=== PATIENT | male | born 1950 | race Caucasian/White ===

== ENCOUNTER → 2020-09-16 12:46 | Outpatient (CLI) | payer MEDICARE, SELFPAY ==
--- NOTE | ~2020-09-16 | CT_ITS ---
EXAMINATION: CT abdomen pelvis wo con DATE: 09/16/2020 13:03 INDICATION: Right kidney stone. TECHNIQUE: Computed tomography (CT) of the abdomen and pelvis was performed without intravenous contr ast. Automated exposure control and iterative reconstruction technique were employed. The dose-length product was 300.22 mGy-cm. COMPARISON: CT abdomen and pelvis 07/17/2019 FINDINGS: The visualized portions of the lung bases demonstrate mild scarring in paraspinal right low er lobe. No pleural effusion. There is a large sliding hiatal hernia. The heart size is normal. No pe ricardial effusion. There are cysts in the liver measuring up to 2.8 cm. The spleen, gallbladder, min creas, and adrenal glands are normal. There is mild right hydronephrosis and hydroureter. The prostat e is moderately enlarged. There is a 15 mm cyst in left kidney. There are no dilated loops of bowel. There is severe wall thickening of a loop of small bowel in the pelvis. There are no pathologically e nlarged lymph nodes. There is no free intraperitoneal fluid. There is lumbar dextro scoliosis and sev ere spondylosis. There is a chronic burst fracture of T12. IMPRESSION: 1. Severe wall thickening of a loop of small bowel in the pelvis suspicious for primary malignancy singh ch as adenocarcinoma or lymphoma. 2. Mild right hydronephrosis and hydroureter to the level of the abnormal small bowel loop. No urolit hiasis. 3. Large sliding hiatal hernia. Reviewed, dictated and finalized at location A. IMPRESSION: 1. Severe wall thickening of a loop of small bowel in the pelvis suspicious for primary malignancy such as adenocarcinoma or lymphoma. 2. Mild right hydronephrosis and hydroureter to the level of the abnormal small bowel loop. No urolithiasis. 3. Large sliding hiatal hernia.
== END ==
PROVIDERS: PCP Family Medicine Adolescent Medicine; Visit Provider Urology
DX: N20.0 Calculus of kidney (principal); R93.3 Abnormal findings on diagnostic imaging of other parts of digestive tract; N13.30 Unspecified hydronephrosis; N13.4 Hydroureter; K44.9 Diaphragmatic hernia without obstruction or gangrene
CPT/HCPCS: 74176

== ENCOUNTER 2020-09-29 01:13 | Outpatient (CLI) | payer MEDICARE, SELFPAY ==
[2020-09-29 19:47] LABS: SARS-CoV-2 RNA PCR Negative
== END 2020-09-29 01:14 | disposition home or self-care (01) ==
LOC: ANHCOVIDDT 01:14
PROVIDERS: PCP Family Medicine Adolescent Medicine; Visit Provider Urology
DX: Z01.818 Encounter for other preprocedural examination (principal); Z20.828 Contact with and (suspected) exposure to other viral communicable diseases
CPT/HCPCS: 87635; C9803; U0003

== ENCOUNTER 2020-10-01 01:03 | Day surgery (SDC) | payer MEDICARE, SELFPAY ==
[2020-09-29 10:35] VITALS: BMI 21.9
--- NOTE | ~2020-10-01 | XR_ITS ---
EXAMINATION: XR retrograde pyelo w/stent RT DATE: 10/01/2020 15:03 INDICATION: Retrograde stent placement TECHNIQUE: 84 images of the abdomen and pelvis were obtained during procedure performed by Dr. Medley . Radiologist was not present for the imaging or procedure. The amount of fluoroscopy time used durin g this procedure was 0.4 minutes. COMPARISON: CT dated 09/16/2020 FINDINGS: Images demonstrate cannulation of the right ureter and retrograde injection of contrast into the righ t ureter and renal collecting system. There is stenosis of the distal 6 cm the right ureter with more proximal mild hydroureteronephrosis. Subsequent images demonstrate placement of a right internal ure teral stent with loops formed in the right renal pelvis and in the bladder. IMPRESSION: 1. Right internal ureteral stent placement in expected position spanning a stenosis in the distal rig ht ureter which is likely related to a suspected adjacent small bowel neoplasm. Reviewed, dictated and finalized at location . [employer]SULT[employer] IMPRESSION: 1. 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
--- NOTE | 2020-10-01 06:29 | WPDHPUPDATE1 ---
History and Physical Update Update Date/Time: 10/01/20 06:29 History and Physical has been reviewed, including an updated exam of the patient. There are NO changes in the patient's condition. Risks, benefits, and alternatives have been discussed and questions answered. Patient agrees to proceed with procedure.
[2020-10-01 13:31] VITALS: BP 118/75; PULSE 64; RESP 20; TEMP 36.3; O2SAT 100
[2020-10-01] MEDS: LACTATED RINGERS 1,000 ML 30 ML IV CONT (13:56)
--- NOTE | 2020-10-01 14:10 | WPDANESEPPF ---
Anes - Initial Pre Proc Eval Procedure: Operation Date: 10/01/20 16:00 Proposed Procedures p Cystoscopy, Right Retrograde Pyelogram, Right Stent Placement - John Medley MD Date/Time: 10/01/20 14:10 Surgeon: John Medley MD Pre Op Diagnosis: right hydronephrosis Patient Data Age: 69 Gender: M Height: 6 ft 3 in Weight: 75.9 kg Last Vital Signs Temp 36.3 C L 10/01/20 13:31 Pulse 64 10/01/20 13:31 Resp 20 10/01/20 13:31 BP 118/75 10/01/20 13:31 Pulse Ox 100 10/01/20 13:31 Allergies Allergy/AdvReac Type Severity Reaction Status Date / Time No Known Allergies Allergy Verified 10/01/20 13:36 Home Medications Medication Instructions Recorded Confirmed Type alfalfa 500 mg tablet 500 mg PO DAILY 09/18/20 10/01/20 History cholecalciferol (vitamin D3) 25 25 mcg PO DAILY 09/18/20 10/01/20 History mcg (1,000 unit) capsule finasteride 1 mg tablet 1 mg PO DAILY 09/18/20 10/01/20 History flaxseed oil 1,000 mg capsule 1,000 mg PO EVERY OTHER DAY 09/18/20 10/01/20 History hydrocodone 5 mg-acetaminophen 325 1 tablet PO Q8H 09/18/20 10/01/20 History mg tablet multivitamin,nt-cqtn-mosdybwa 1 tablet PO DAILY 09/18/20 10/01/20 History omega-3 fatty acids 1,000 mg 1,000 mg PO EVERY OTHER DAY 09/18/20 10/01/20 History capsule psyllium husk 0.4 gram capsule 0.4 g PO DAILY 09/22/20 10/01/20 History Patient hx anesthesia problems: none Family hx anesthesia problems: none PMFSH Past Medical History Medical History History of kidney stones Lower abdominal pain Surgical History Surgical History H/O bilateral inguinal hernia repair History of tonsillectomy Family History Family History Father Family history of diabetes mellitus in first degree relative Family history of congestive heart failure Hypertension Mother Family history of malignant neoplasm of kidney Social History Social History Smoking status: Never smoker Alcohol intake: current Substance use: never Spiritual care concerns: No Anes - Eval Final PreProcedure Day of Procedure 10/01/20 14:10 Patient weight: normal Heart: regular rate and rhythm Lungs: clear to auscultation Airway: Mallampati scale class II Neurological: alert and oriented Last oral intake: >/= 8 hours ASA classification: II Emergent: no Anesthetic plan: proceed Anesthesia type and monitoring: general LMA and standard monitoring Informed Consent: The patient's anesthetic plan and its attendant risks and benefits were discussed with the patient/family/POA. Questions were solicited and answers provided to the satisfaction of the patient/family/POA.
[2020-10-01] MEDS: ceFAZolin 2 GM/D5W 50 ML 2 GM/50 ML BAG IVPB (14:45)
--- NOTE | 2020-10-01 14:59 | PM.PROC ---
Procedure Note - Detailed Date of procedure: 10/01/20 Pre-op diagnosis: right hydronephrosis Post-op diagnosis: same Procedure performed: Cystoscopy, right retrograde pylegraphy, right ureteral stent placement Description of procedure: The patient was brought to the operative suite where he was prepped and draped in a routine sterile fashion while in the dorsal lithotomy position. A 19 F rigid cystoscope was placed in her bladder and the bladder was circumferentially inspected. There were no urethral strictures. The prostatic urethral estimated length was []cm. There was mild obstruction of the prostatic urethra with no median lobe. The bladder mucosa was without hyperemia. There was no intravesical foreign body or neoplasm. There was a single orthotopic ureteral orifice bilaterally. using an angiographic catheter a right retrograde pyelogram was obtained. There is concentric narrowing just below the right iliac vessels, consistent with extrinsic compression from the small bowel mass as previously identified. I advanced .035 glidewire into the right renal pelvis under fluoroscopy. A 6F variable length ureteral stent was positioned with the proximal coil in the renal pelvis and the distal coil in the bladder. Scopes and wires were removed after emptying the patient's bladder. Anesthesia: GLMA Surgeon: John Medley MD Estimated blood loss (mL): 0 Drains: Yes (6F right ureteral stent) Packing: No Pathology: none sent Complications: No immediate complications Condition: stable Disposition: PACU
[2020-10-01 15:00] VITALS: BP 105/69; PULSE 63; RESP 16; O2SAT 100
[2020-10-01 15:20] VITALS: BP 126/86; PULSE 67; RESP 16
[2020-10-01 15:35] VITALS: BP 113/78; PULSE 56
[2020-10-01 15:50] VITALS: BP 124/64; PULSE 61; RESP 16
== END 2020-10-01 16:03 | disposition home or self-care (01) ==
PROVIDERS: PCP Family Medicine Adolescent Medicine; Visit Provider Urology
PROC: (CPT 52352; principal; 2020-10-01 16:00)
DX: N13.30 Unspecified hydronephrosis (principal)
CPT/HCPCS: 52332; 74420; A9270; C1769; C1887; C2617; J0690; J2704; J7120; Q9966

== ENCOUNTER 2020-10-12 09:55 | Outpatient (CLI) | payer MEDICARE, SELFPAY ==
--- NOTE | 2020-10-12 10:38 | ECG_ITS ---
Measurements Intervals [place] Rate: 64 P: 77 ND: 160 QRS: 48 QRSD: 97 T: 54 QT: 370 QTc: 383 Interpretive Statements SINUS RHYTHM RSR' IN V1 OR V2, CONSIDER RIGHT VENTRICULAR HYPERTROPHY OR RIGHT VCD VOLTAGE CRITERIA FOR LVH PEAKED T WAVES- CONSIDER HYPERKALEMIA OR ISCHEMIA BASELINE ARTIFACT- I, II, III, AVR, AVL, AVF ABNORMAL ECG Electronically Signed On 10-12-2020 11:01:47 WHEEL [employer]UTTER by Stalin Manzanares D.O.
== END 2020-10-12 09:56 | disposition home or self-care (01) ==
LOC: ANHSURGERY 09:57
PROVIDERS: PCP Family Medicine Adolescent Medicine; Visit Provider Surgery
DX: Z01.818 Encounter for other preprocedural examination (principal); K63.89 Other specified diseases of intestine; R94.31 Abnormal electrocardiogram [ECG] [EKG]
CPT/HCPCS: 36415; 86850; 86900; 86901; 93005

== ENCOUNTER → 2020-10-14 08:14 | Outpatient (CLI) | payer MEDICARE, SELFPAY ==
--- NOTE | ~2020-10-14 | XR_ITS ---
EXAMINATION: XR small bowel follow through EXAM DATE: 10/14/2020 10:01 INDICATION: K63.89 - Other specified diseases of intestine TECHNIQUE: Rn Endocrinology radiograph was acquired. Small bowel series was performed with water-soluble Omnipa que solution. Spot images of the terminal ileum were acquired. The DAP for this procedure was 1.9 Gycm2. Correlation is made to CT abdomen pelvis 09/16/2020. FINDINGS: In the pelvis there is a loop of ileum which likely correlates to the loop identified on CT , has more space around it than the other loops likely from bowel wall thickening identified on CT. T his segment still demonstrated some peristalsis. There are no intraluminal filling defects identified . There is no small bowel dilation. Terminal ileum is normal in appearance. Contrast reached the c olon 15 to 30 minutes, rapid transit time. There is a right double-J ureteral stent. IMPRESSION: Single loop of low pelvic ileum slightly displaced from others, could be from wall thick ening identified on CT. Reviewed, dictated and finalized at location B. IAC RN IMPRESSION: Single loop of low pelvic ileum slightly displaced from others, co uld be from wall thickening identified on CT.
== END ==
PROVIDERS: PCP Family Medicine Adolescent Medicine; Visit Provider Nurse Practitioner Family
DX: K63.89 Other specified diseases of intestine (principal)
CPT/HCPCS: 74250

== ENCOUNTER 2020-10-16 01:22 | Outpatient (CLI) | payer MEDICARE, SELFPAY ==
[2020-10-16 21:25] LABS: SARS-CoV-2 RNA PCR Negative
== END 2020-10-16 01:23 | disposition home or self-care (01) ==
LOC: ANHCOVIDDT 01:22
PROVIDERS: PCP Family Medicine Adolescent Medicine; Visit Provider Surgery
DX: Z01.812 Encounter for preprocedural laboratory examination (principal); Z20.828 Contact with and (suspected) exposure to other viral communicable diseases
CPT/HCPCS: 87635; C9803; U0003

== ENCOUNTER 2020-10-19 11:28 | Inpatient (IN) | payer MEDICARE, SELFPAY ==
[2020-10-12 10:18] VITALS: BP 116/76; PULSE 78; RESP 20; TEMP 36.7; O2SAT 100; BMI 20.3
[2020-10-19] VITALS (15 sets, daily range): BP systolic 84–127; BP diastolic 52–73; PULSE 66–86; RESP 12–20; TEMP 36.2–36.9; O2SAT 99–100; BMI 19.9
--- NOTE | 2020-10-19 08:11 | WPDANESEPPF ---
Anes - Initial Pre Proc Eval Procedure: Operation Date: 10/19/20 09:30 Proposed Procedures p Lap Right Transverse Colon Resection - Lisa Hinton MD Date/Time: 10/19/20 08:11 Surgeon: Lisa Hinton MD Pre Op Diagnosis: Small Bowel Mass Highly Suspicion of Malignancy Patient Data Age: 70 Gender: M Height: 6 ft 3 in Weight: 72.4 kg Last Vital Signs Temp 36.2 C L 10/19/20 07:48 Pulse 86 10/19/20 07:48 Resp 20 10/19/20 07:48 BP 113/68 10/19/20 07:48 Pulse Ox 100 10/19/20 07:48 Allergies Allergy/AdvReac Type Severity Reaction Status Date / Time No Known Allergies Allergy Verified 10/19/20 08:03 Home Medications Medication Instructions Recorded Confirmed Type alfalfa 500 mg tablet 500 mg PO DAILY 09/18/20 10/19/20 History cholecalciferol (vitamin D3) 25 25 mcg PO DAILY 09/18/20 10/19/20 History mcg (1,000 unit) capsule finasteride 1 mg tablet 5 mg PO DAILY 09/18/20 10/19/20 History flaxseed oil 1,000 mg capsule 1,000 mg PO EVERY OTHER DAY 09/18/20 10/19/20 History multivitamin,bp-xusd-zdwdurox 1 tablet PO EVERY OTHER DAY 09/18/20 10/19/20 History omega-3 fatty acids 1,000 mg 1,000 mg PO EVERY OTHER DAY 09/18/20 10/19/20 History capsule psyllium husk 0.4 gram capsule 0.4 g PO DAILY 09/22/20 10/19/20 History erythromycin 500 mg tablet 500 mg PO .COMPLEX #6 tablet 10/09/20 10/19/20 Rx neomycin 500 mg tablet 500 mg PO .COMPLEX #6 tablet 10/09/20 10/19/20 Rx geriatric multivitamin-min 1 tablet EVERY OTHER DAY 10/12/20 10/19/20 History [One-A-Day 50 Plus] Patient hx anesthesia problems: none Family hx anesthesia problems: none PMFSH Past Medical History Medical History History of kidney stones Lower abdominal pain Surgical History Surgical History H/O bilateral inguinal hernia repair History of tonsillectomy Family History Family History Father Family history of diabetes mellitus in first degree relative Family history of congestive heart failure Hypertension Mother Family history of malignant neoplasm of kidney Social History Social History Smoking status: Never smoker Alcohol intake: current Alcohol use details: STATES MAYBE ONE EVERY OTHER WEEK Substance use: never Living arrangements: with family Spiritual care concerns: No Anes - Eval Final PreProcedure Day of Procedure 10/19/20 08:11 Patient weight: normal Heart: regular rate and rhythm Lungs: clear to auscultation Airway: Mallampati scale class II Neurological: alert and oriented Last oral intake: >/= 8 hours ASA classification: III Emergent: no Anesthetic plan: proceed Anesthesia type and monitoring: general ETT and standard monitoring Informed Consent: The patient's anesthetic plan and its attendant risks and benefits were discussed with the patient/family/POA. Questions were solicited and answers provided to the satisfaction of the patient/family/POA.
[2020-10-19] MEDS: LACTATED RINGERS 1,000 ML 30 ML IV CONT ×2 (08:26→11:28)
[2020-10-19] MEDS: ACETAMINOPHEN 500 MG TABLET 1000 MG PO (08:27)
[2020-10-19] MEDS: KETOROLAC 15 MG/ML VIAL (*BKC) IV PUSH (08:27)
[2020-10-19] MEDS: ALVIMOPAN 12 MG CAPSULE PO (08:28)
--- NOTE | 2020-10-19 08:33 | SUR.PREOP ---
PT STATES HE DRANK HIS ENSURE YESTERDAY BUT WAS UNABLE TO DRINK ENSURE TODAY.
--- NOTE | 2020-10-19 08:59 | SUR.PREOP ---
DR WILCOX NOTIFIED THAT PT DRANK HIS ENSURE YESTERDAY BUT NOT TODAY
--- NOTE | 2020-10-19 09:00 | WPDHPUPDATE1 ---
History and Physical Update Update Date/Time: 10/19/20 09:00 History and Physical has been reviewed, including an updated exam of the patient. There are NO changes in the patient's condition. Risks, benefits, and alternatives have been discussed and questions answered. Patient agrees to proceed with procedure. Pt c SB mass highly suspicious of malignancy, given this will proceed c surgical resection.
[2020-10-19] MEDS: ceFAZolin 2 GM/D5W 50 ML 2 GM/50 ML BAG IVPB (09:41)
[2020-10-19] MEDS: metroNIDAZOLE 500 MG/ISO 100ML 500 MG/100 ML BAG 100 MG IVPB (09:51)
--- NOTE | 2020-10-19 11:33 | PM.PROC ---
Procedure Note - Detailed Date of procedure: 10/19/20 Pre-op diagnosis: Small Bowel Mass Highly Suspicion of Malignancy Post-op diagnosis: same Procedure performed: exploratory laparotomy, lysis of adhesions including mobilization of the right colon, small bowel resection Description of procedure: The patient was taken to the operating room and placed in the supine position. After adequate induction of general anesthesia, the patient was prepped and draped in the normal sterile fashion. A time-out was then done to verify the patient's identity, as well as the procedure being performed. I began by making a hand port incision around the umbilicus. This was taken down into the peritoneal cavity. Once into the peritoneal cavity, I was able to palpate the mass located in the right lower pelvis. The mass was noted to be somewhat adhered to the anterior abdominal wall as well as the right pelvis. Using some blunt dissection was able to free up these adhesions. I was then able to bring the mass to the area of the incision. The mass was noted to be located in the mid ileum. I was able to free the bowel both proximal and distal to the mass. I then was able to mobilize the right colon by taking down the white line of Toldt. Given the easy mobilization and visualization I decided not to proceed with laparoscopy. I then transected the small bowel proximal using a BEATRIZ 55 stapler. The distal margin was in the terminal ileum and again transected with a 55 BEATRIZ stapler. There was noted to be a mass in the mesentery and this was resected en block with the specimen. I used the LigaSure to take down the mesentery. The specimen was then sent to pathology fresh for review. I then performed a [id number] functional end-to-end anastomosis between the 2 ends of small intestine. I then closed the mesenteric defect. I then copiously irrigated the abdomen and no other pathology was grossly identified. The fascia was then closed with #1 Looped PDS suture. The skin was closed with 4.0 Monocryl subcuticular suture. The patient tolerated the procedure well and was extubated in the operating room postoperative. He will be sent to the recovery room in stable condition. Anesthesia: GETA Surgeon: Lisa Hinton MD Estimated blood loss (mL): 100 Drains: No Packing: No Pathology: yes Complications: No immediate complications Condition: stable Disposition: PACU Findings: large mass in mid ileum and messentery
[2020-10-19] MEDS: fentaNYL CITRATE INJ (*CRX) 100 MCG/2 ML VIAL 25 MCG IV PUSH ×6 (11:52→12:20)
[2020-10-19] MEDS: LACTATED RINGERS 1,000 ML 100 ML IV CONT ×2 (13:25→23:55)
[2020-10-19] MEDS: MORPHINE SULFATE (*CRX) 2 MG/ML INJ IV PUSH ×2 (13:25→17:45)
[2020-10-19] MEDS: CHOLECALCIFEROL 1,000 UNITS TABLET 1000 UNITS PO (18:26)
[2020-10-19] MEDS: FINASTERIDE 5 MG TABLET PO (18:26)
[2020-10-19] MEDS: OMEGA 3 POLYUNSAT FATTY ACIDS 1 GM CAP PO (18:27)
[2020-10-19] MEDS: GABAPENTIN 300 MG CAPSULE 600 MG PO (18:27)
[2020-10-19] MEDS: THERAPEUTIC MULTIVITAMINS/MINERALS TAB (*BKC) 1 TABLET PO (18:27)
[2020-10-20 00:36] VITALS: BP 90/56
[2020-10-20 04:00] VITALS: BP 98/65; PULSE 68; RESP 20; TEMP 37.1; O2SAT 100
[2020-10-20 05:18] LABS: Basophils Percent Auto 0.1 % (0.2-1.2); Hematocrit 24.7 % (42.0-52.0); Hemoglobin 8.4 g/dL (14.0-18.0); Immature Granulocyte Absolute 0.12 K/mm3 (0.00-0.031); Immature Granulocyte Percent A 0.7 % (0-0.5); Lymphocytes Absolute Auto 0.48 K/mm3 (0.9-3.2); Lymphocytes Percent Auto 2.8 % (18.3-44.2); Mean Corpuscular Hemoglobin 26.7 pg (26-34); Mean Corpuscular Volume 78.4 fl (80-100); Mean Platelet Volume 9.7 fl (7.4-10.4); Monocytes Absolute Auto 0.8 K/mm3 (0.1-0.6); Neutrophils Absolute Auto 15.5 K/mm3 (1.3-6.7); Neutrophils Percent Auto 91.4 % (45.5-73.1); Platelet Count Result 276 k/mm3 (150-375); Red Blood Count 3.15 M/mm3 (4.6-6.20); Red Cell Distribution Width 12.8 % (11.5-14.5); White Blood Count 16.9 K/mm3 (4.5-10.0)
[2020-10-20 05:26] LABS: Anion Gap 4 mmol/L (8-16); Blood Urea Nitrogen 21 mg/dL (9-20); Calcium 8.7 mg/dL (8.4-10.2); Carbon Dioxide 26 mmol/L (22-30); Chloride 103 mmol/L (98-107); Estimated CRCL calculation 58 ml/min; Estimated Glomerular Filt Rate > 60; Glucose 140 mg/dL (75-110); Potassium 3.9 mmol/L (3.4-5.0); Sodium 133 mmol/L (137-145)
[2020-10-20 06:12] LABS: Ovalocytes 1+ (NORMAL); Platelet Estimate Adequate (Adequate); Schistocytes 1+ (NORMAL)
--- NOTE | 2020-10-20 07:58 | WPDANESPN ---
Anes - Prog Note Post-Op Date/Time: 10/20/20 07:58 Cardiovascular status: normal Respiratory status: normal Airway patency: baseline Mental status: baseline Post-Op hydration status: normal Vital Signs: Last Vital Signs Temp 37.1 C 10/20/20 04:00 Pulse 68 10/20/20 04:00 Resp 20 10/20/20 04:00 BP 98/65 L 10/20/20 04:00 Pulse Ox 100 10/20/20 04:00 Pain Score (VAS): 0 I/O: Intake & Output 10/19/20 10/19/20 10/20/20 15:59 23:59 07:59 Intake Total 100 2665 935 Output Total 100 225 900 Balance 0 2440 35 Laboratory Tests 10/20/20 05:05 10/20/20 05:05 10/20/20 10/20/20 05:05 05:05 WBC 16.9 H RBC 3.15 L Hgb 8.4 L Hct 24.7 L MCV 78.4 L MCH 26.7 MCHC 34.0 RDW 12.8 Plt Count 276 MPV 9.7 Immature Gran % (Auto) 0.7 H Neut % (Auto) 91.4 H Lymph % (Auto) 2.8 L Howard % (Auto) 5.0 Eos % (Auto) 0.0 Baso % (Auto) 0.1 L Lymph # (Auto) 0.48 L Howard # (Auto) 0.8 H Eos # (Auto) 0.0 Baso # (Auto) 0.0 Abs Immat Gran (auto) 0.12 H Absolute Neuts (auto) 15.5 H Absolute Nucleated RBC 0.0 Nucleated RBC % 0.0 Platelet Estimate Adequate Ovalocytes 1+ Schistocytes 1+ Sodium 133 L Potassium 3.9 Chloride 103 Carbon Dioxide 26 Anion Gap 4 L BUN 21 H Creatinine 1.10 Estim Creat Clear Calc 58 Estimated GFR > 60 Glucose 140 H Calcium 8.7 Post-procedural complaints: none Patient Feedback: Patient satisfied with anesthetic care.
[2020-10-20] MEDS: FINASTERIDE 5 MG TABLET PO (08:25)
[2020-10-20] MEDS: PANTOPRAZOLE 40 MG TABLET PO (08:25)
[2020-10-20] MEDS: CHOLECALCIFEROL 1,000 UNITS TABLET 1000 UNITS PO (08:26)
[2020-10-20] MEDS: LACTATED RINGERS 1,000 ML 100 ML IV CONT (10:33)
--- NOTE | 2020-10-20 11:26 | PM.PNGS ---
Progress Note: A&P Assessment and Plan (1) Small bowel mass: Code(s): K63.89 - Other specified diseases of intestine Status: Acute Assessment and Plan: POD#1 and doing well. Tolerating a clear liquid diet. Will advance diet as tolerated. Encouraged OOB/IS. Pathology pending. (2) BPH (benign prostatic hyperplasia): Code(s): N40.0 - Benign prostatic hyperplasia without lower urinary tract symptoms Status: Acute Assessment and Plan: Discontinue Barron catheter. Monitor for urinary retention. Finasteride restarted post-op. Additional Plan Discussed plan of care with Dr. Hinton. Subjective Subjective Date/Time Seen: 10/20/20 11:26 Post Op day: 1 Patient reports: no new complaints, tolerating liquids well, flatus and no bowel movement Interval history: Patient seen and examined. Reports tolerating activity and was able to walk the halls this morning. He reports some light-headedness while ambulating that quickly subsided x 1, no recurrence when getting up to walk again later in the morning. Tolerating a clear liquid diet. Denies nausea, vomiting, or bloating. Reports flatus but no BM yet. Reports some incisional abdominal pain that improves with the IV Ofirmev. No other complaints at this time. Review of Systems Review of Systems: All systems reviewed & are unremarkable except as noted in HPI and below Constitutional: Constitutional: Reports no additional constitutional complaints, Denies chills and Denies fever(s) Cardiovascular: Cardiovascular: Reports no additional cardiovascular complaints, Denies chest pain, Denies pedal edema and Denies leg edema Respiratory: Respiratory: Reports no additional respiratory complaints, Denies cough, Denies dyspnea and Denies wheezing Gastrointestinal: Gastrointestinal: Reports as per HPI and Reports no additional gastrointestinal complaints Exam Const: General: comfortable, no acute distress, alert and awake Orientation/consciousness: patient oriented x3 Resp: Effort & Inspection: normal respiratory effort and able to speak in complete sentences Auscultation: clear to auscultation bilaterally Cardio: Rate: regular rate Rhythm: regular rhythm GI: Inspection: non-distended and incision (Abdominal incision clean and dry, glue intact) GI Palp: Yes Soft to palpation, Yes Tenderness to palpation present (GI) (incisional), No Guarding due to palpation present (GI) and No Rebound tenderness present Auscultation: normal bowel sounds Urinary Catheter: Urinary Catheter: patent and draining and urine clear Skin: General skin exam: pallor Neuro: General: patient oriented x3 and moves all extremities Cranial nerves: Yes CN's II-XII intact bilaterally Speech: normal speech Extrem: General: no calf tenderness and no edema Psych: Mental Status: mental status grossly normal Attitude: cooperative Thought process: Normal thought process present Thought content: Yes Normal thought content present Objective Data Vital Signs Vital Signs: Vital Signs - 24 hr 10/19/20 11:28 10/19/20 11:43 10/19/20 11:58 Temperature 97.1 F L Pulse Rate 79 73 82 Respiratory Rate 14 15 17 Blood Pressure 119/64 119/69 114/73 Pulse Oximetry 100 100 100 10/19/20 12:13 10/19/20 12:15 10/19/20 12:25 Temperature 98.5 F Pulse Rate 73 82 76 Respiratory Rate 15 16 12 Blood Pressure 109/68 112/63 108/67 Pulse Oximetry 100 100 100 10/19/20 12:30 10/19/20 12:45 10/19/20 13:00 Temperature 98.3 F 97.9 F 98 F Pulse Rate 83 85 85 Respiratory Rate 16 16 16 Blood Pressure 112/66 111/67 113/66 Pulse Oximetry 100 100 100 10/19/20 13:30 10/19/20 14:00 10/19/20 18:00 Temperature 98 F 97.9 F 98.5 F Pulse Rate 85 85 75 Respiratory Rate 16 16 16 Blood Pressure 118/68 127/68 118/66 Pulse Oximetry 100 100 100 10/19/20 20:00 10/19/20 23:56 10/20/20 00:36 Temperature 98.5 F 98.4 F Pulse Rate 76 66 Respiratory Rate 18 18 Blood Pressure 109/56 L 84/52 L 90/56 L Pulse Ox
[2020-10-20 12:00] VITALS: BP 122/73; PULSE 82; RESP 18; TEMP 36.9; O2SAT 100
[2020-10-20 14:18] VITALS: TEMP 36.9
[2020-10-20] MEDS: ACETAMINOPHEN 500 MG TABLET PO (14:18)
[2020-10-20] MEDS: ALVIMOPAN 12 MG CAPSULE PO ×2 (14:20→23:57)
[2020-10-20] MEDS: HYDROcodone/acetaminophen (*CRX) 5-325 MG TABLET 1 TAB PO ×2 (15:02→20:40)
[2020-10-20 16:00] VITALS: BP 120/79; PULSE 82; RESP 18; TEMP 36.4; O2SAT 100
[2020-10-20 17:41] VITALS: BMI 20.6
[2020-10-20 20:00] VITALS: BP 127/83; PULSE 74; PULSE 80; RESP 15; RESP 16; TEMP 37.1; O2SAT 100; O2SAT 99
[2020-10-21] VITALS (7 sets, daily range): BP systolic 116–149; BP diastolic 74–89; PULSE 67–91; RESP 15–19; TEMP 36.6–36.9; O2SAT 98–100
[2020-10-21] MEDS: HYDROcodone/acetaminophen (*CRX) 5-325 MG TABLET 1 TAB PO (04:48)
[2020-10-21 05:15] LABS: Hematocrit 28.4 % (42.0-52.0); Hemoglobin 9.4 g/dL (14.0-18.0); Mean Corpuscular HGB Conc 33.1 g/dl (32-36); Mean Corpuscular Hemoglobin 26.9 pg (26-34); Mean Corpuscular Volume 81.4 fl (80-100); Mean Platelet Volume 9.8 fl (7.4-10.4); Platelet Count Result 312 k/mm3 (150-375); Red Blood Count 3.49 M/mm3 (4.6-6.20); Red Cell Distribution Width 13.2 % (11.5-14.5); White Blood Count 16.8 K/mm3 (4.5-10.0)
[2020-10-21 05:33] LABS: Anion Gap 2 mmol/L (8-16); Blood Urea Nitrogen 19 mg/dL (9-20); Calcium 9.1 mg/dL (8.4-10.2); Carbon Dioxide 29 mmol/L (22-30); Chloride 106 mmol/L (98-107); Estimated CRCL calculation 70 ml/min; Estimated Glomerular Filt Rate > 60; Glucose 102 mg/dL (75-110); Potassium 3.9 mmol/L (3.4-5.0); Sodium 137 mmol/L (137-145)
[2020-10-21] MEDS: PANTOPRAZOLE 40 MG TABLET PO (08:23)
[2020-10-21] MEDS: CHOLECALCIFEROL 1,000 UNITS TABLET 1000 UNITS PO (08:24)
[2020-10-21] MEDS: OMEGA 3 POLYUNSAT FATTY ACIDS 1 GM CAP PO (08:24)
[2020-10-21] MEDS: FINASTERIDE 5 MG TABLET PO (08:24)
[2020-10-21] MEDS: THERAPEUTIC MULTIVITAMINS/MINERALS TAB (*BKC) 1 TABLET PO (08:24)
[2020-10-21] MEDS: ALVIMOPAN 12 MG CAPSULE PO ×2 (08:24→21:12)
--- NOTE | 2020-10-21 11:58 | PM.PNGS ---
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 - Non-Hodgkin lymphoma, unspecified, extranodal and solid organ sites Status: Acute Assessment and Plan: await final path, will get oncology consult, await bowel fxn, cont to ADAT Subjective Subjective Date/Time Seen: 10/21/20 11:58 feels pretty good, no acute issues, +flatus, davina full liquids Review of Systems Review of Systems: All systems reviewed & are unremarkable except as noted in HPI and below Exam Resp: Effort & Inspection: normal respiratory effort Auscultation: clear to auscultation bilaterally Cardio: Rate: regular rate Rhythm: regular rhythm GI: Inspection: normal to inspection, no edema, non-distended and incision GI Palp: Yes abdominal tenderness, Yes Soft to palpation, No Firmness to palpation present (GI), Yes Tenderness to palpation present (GI) and No Guarding due to palpation present (GI) Other: soft, sl dist, belem TTP, incision C/D/I Objective Data Vital Signs Vital Signs: Vital Signs - 24 hr 10/20/20 12:00 10/20/20 14:18 10/20/20 16:00 Temperature 36.9 C 36.9 C 36.4 C L Pulse Rate 82 82 Respiratory Rate 18 18 Blood Pressure 122/73 120/79 Pulse Oximetry 100 100 10/20/20 20:00 10/21/20 00:00 10/21/20 04:00 Temperature 37.1 C 36.9 C 36.7 C Pulse Rate 74 81 78 Respiratory Rate 16 18 18 Blood Pressure 127/83 122/87 129/83 Pulse Oximetry 100 98 100 10/21/20 08:00 10/21/20 08:20 Temperature 36.9 C Pulse Rate 91 91 Respiratory Rate 18 18 Blood Pressure 120/89 Pulse Oximetry 100 100 Intake/Output Intake/Output: Intake & Output 10/18/20 10/19/20 10/20/20 10/21/20 23:59 23:59 23:59 23:59 Intake Total 2768 4079 Output Total 325 7540 Balance 0867 0726 Meds/Results Medications: Active Medications Generic Name Dose Route Start Last Admin Trade Name Freq PRN Reason Stop Dose Admin Acetaminophen 500 mg 10/19/20 11:28 10/20/20 14:18 Acetaminophen 500 Mg Tablet PO 500 mg Q6H PRN Administration Mild Pain (1-3) or Fever Hydrocodone Bitart/Acetaminophen 1 tab 10/20/20 14:00 10/21/20 04:48 Hydrocodone/Acetaminophen (*Crx) 5-325 Mg Tablet PO 1 tab Q4H PRN Administration Pain Rated 4-6 Alvimopan 12 mg 10/20/20 11:28 10/21/20 08:24 Alvimopan 12 Mg Capsule PO 10/27/20 11:29 12 mg Q12HR SASKIA Administration Finasteride 5 mg 10/19/20 09:00 10/21/20 08:24 Finasteride 5 Mg Tablet PO 5 mg QAM SASKIA Administration Fish Oil 1 gm 10/19/20 13:00 10/21/20 08:24 [place] 3 Polyunsat Fatty Acids 1 Gm Cap PO 1 gm Q48HR SASKIA Administration Morphine Sulfate 2 mg 10/19/20 11:28 10/19/20 17:45 Morphine Sulfate (*Crx) 2 Mg/Ml Inj IV PUSH 2 mg Q2H PRN Administration Pain Rated 4-6 Multivitamins/Calcium 1 tablet 10/19/20 13:00 10/21/20 08:24 Therapeutic Multivitamins/Minerals Tab (*Bkc) PO 1 tablet Q48HR SASKIA Administration Naloxone HCl 0.1 mg 10/19/20 11:28 Naloxone Hcl 0.4 Mg/Ml Vial IV PUSH Q2M PRN Opiate Reversal Neomycin Sulfate 500 mg 10/19/20 11:35 Neomycin Sulfate 500 Mg Tab PO .COMPLEX SASKIA Non-Formulary Medication 500 mg 10/19/20 11:45 Erythromycin PO 11/18/20 11:46 .COMPLEX SASKIA Non-Formulary Medication 1,000 mg 10/19/20 09:00 Flaxseed Oil PO 11/18/20 09:01 Q48H SASKIA Non-Formulary Medication 1 tablet 10/19/20 11:45 Geriatric Multivitamin-Min PO 11/18/20 11:46 EVERY OTHER DAY SASKIA Non-Formulary Medication 0.4 gm 10/20/20 09:00 Psyllium Husk [Fiber (Psyllium Husk)] PO 11/19/20 09:01 DAILY SASKIA Ondansetron HCl 4 mg 10/19/20 11:28 Ondansetron Inj 4 Mg/2 Ml Vial IV PUSH Q4H PRN Nausea And Vomiting Oxycodone/Acetaminophen 1 tablet 10/20/20 14:00 Oxycodone/Acetaminophen (*Crx) 5-325 Mg Tablet PO Q4H PRN Pain Rated 7-10 Pantoprazole Sodium 40 mg 10/20/20 09:00 10/21/20 08:23 Pantopraz
[2020-10-21] MEDS: ACETAMINOPHEN 500 MG TABLET PO ×2 (12:27→19:40)
--- NOTE | 2020-10-21 17:30 | PC.NURSE ---
Patient report received from Kay Rolon RN. All questions answered. Patient care assumed. Patient resting comfortably in bed with no complaints. VSS. Will continue to monitor and address needs as they arise.
[2020-10-22] VITALS: BP 133/80; PULSE 74; RESP 20; TEMP 36.5; O2SAT 100
[2020-10-22 04:00] VITALS: BP 140/84; PULSE 74; RESP 18; TEMP 36.4; O2SAT 100
[2020-10-22] MEDS: ACETAMINOPHEN 500 MG TABLET PO (07:09)
[2020-10-22 08:15] VITALS: BP 120/74; PULSE 87; RESP 14; TEMP 36.6; O2SAT 100
[2020-10-22] MEDS: ALVIMOPAN 12 MG CAPSULE PO (10:33)
[2020-10-22] MEDS: FINASTERIDE 5 MG TABLET PO (10:33)
[2020-10-22] MEDS: PANTOPRAZOLE 40 MG TABLET PO (10:33)
[2020-10-22] MEDS: CHOLECALCIFEROL 1,000 UNITS TABLET 1000 UNITS PO (10:34)
--- NOTE | 2020-10-22 11:51 | PM.DS ---
DS: Admitting Diagnosis Admitting Diagnosis Admitting Diagnosis: small bowel mass DS: Discharge Diagnosis Discharge Diagnosis (1) Small bowel mass: Code(s): K63.89 - Other specified diseases of intestine Status: Acute Assessment and Plan: 10/19/20 exploratory laparotomy, lysis of adhesions including mobilization of the right colon, small bowel resection by Dr. Hinton (2) BPH (benign prostatic hyperplasia): Code(s): N40.0 - Benign prostatic hyperplasia without lower urinary tract symptoms Status: Acute Assessment and Plan: Continue home medication, finasteride, on discharge. No issues with voiding post-op. 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 DS: Summary Hospital Course Reason for hospitalization: Charles is a 69 y/o male who presented to our office in evaluation by Dr. Hinton with a small intestinal mass at the request of Dr. Hanna. Patient had a CT abd/pelvis without contrast at [facility] on 09/16/20 to evaluate for back pain. Imaging showed a severe wall thickening of a loop of small bowel in the pelvis suspicious for primary malignancy such as adenocarcinoma of lymphoma. He is also followed by a Urologist, Dr. Medley. Decision was made to proceed with surgery and the patient presented to the hospital on 10/19/20 for planned small bowel resection. Hospital Course: The patient was admitted following an exploratory laparotomy, lysis of adhesions including mobilization of the right colon, small bowel resection by Dr. Hinton on 10/19/20. No immediate complications. He was sent to the chest pain center as an overflow surgical patient. Slowly he was advanced to a soft, regular diet and has tolerated this well. Pain has been well-controlled with only a small amount of narcotic use. He has been on Alvimopan since surgery and bowel function returned on post-op day 2. He is tolerating activity well. Voiding without any issues after the Barron catheter was removed on POD1. Vital signs have been stable and labs have been unremarkable. CEA was drawn and 2.7. Pathology was still pending this morning when I saw the patient. Dr. Hinton will call the patient to discuss pathology results. Oncology was consulted yesterday. The patient is stable for discharge today and is okay with following up with Oncology quickly as an outpatient if they are unable to see him prior to discharge. The patient was seen today and is tolerating a soft diet. He has had multiple bowel movements last night and this morning. Voiding well. He denies chest pain, shortness of breath, leg swelling, calf pain, or cough. No other complaints at this time. The patient is stable for discharge and I spoke with Dr. Hinton today who is okay with the patient discharging. He will follow-up in our office as scheduled. All discharge instructions were discussed with the patient in detail and all questions were answered. This afternoon, as I am doing the discharge summary, I noted that the pathology results came back and shows: (Please see pathology report for full report and addendums from send outs) - DIFFUSE LARGE B-CELL LYMPHOMA, GERMINAL CENTER TYPE, 12.3 x 5.5 x 2.0 CM - FLOW CYTOMETRY WITH [id number] MONOTYPIC (CLONAL) B-CELL POPULATION (44% OF SAMPLE) WITH MIXED/INCREASED CELL SIZE Comment: Oven Loader fresh neoplastic tissue was sent to [facility] [place], [place] for flow cytometry and cytogenetics. The flow cytometric findings are as given above. The cytogenetic studies are still pending. After gross examination of the specimen and tissue processing at [facility], the microscopic slides and tissue blocks were sent to [facility] for a hematopathology consultation to include immunohistochemistry. At [facility], the case was reviewed by Dr. Figueroa
== END 2020-10-22 13:32 | disposition home or self-care (01) | DRG 822 ==
LOC: ANHSURGERY 12:30 → ANHCPC 12:39
PROVIDERS: Admitting Provider Surgery; PCP Family Medicine Adolescent Medicine; Visit Provider Nurse Practitioner Family
PROC: 0DTF4ZZ Resection of Right Large Intestine, Percutaneous Endoscopic Approach (ICD-10-PCS; CPT 44204; principal; 2020-10-19 09:30)
DX: C83.39 Diffuse large B-cell lymphoma, extranodal and solid organ sites (principal); N40.0 Benign prostatic hyperplasia without lower urinary tract symptoms; Z87.442 Personal history of urinary calculi
CPT/HCPCS: 36415; 80048; 85025; 85027; 87635; 88307; 88309; 88333; 88342; 88360; 88364; 88365; A9270; C9803; J0131; J0330; J0690; J1100; J1885; J2270; J2370; J2405; J2704; J2710; J3010; J7120; U0003

== ENCOUNTER 2020-10-30 02:12 | Outpatient (CLI) | payer MEDICARE, SELFPAY ==
[2020-10-30 18:46] LABS: SARS-CoV-2 RNA PCR Negative
== END 2020-10-30 02:13 | disposition home or self-care (01) ==
LOC: ANHCOVIDDT 02:12
PROVIDERS: PCP Family Medicine Adolescent Medicine; Visit Provider Internal Medicine Hematology & Oncology
DX: Z01.812 Encounter for preprocedural laboratory examination (principal); Z11.59 Encounter for screening for other viral diseases
CPT/HCPCS: 87635; C9803; U0003

== ENCOUNTER 2020-11-02 01:12 | Day surgery (SDC) | payer MEDICARE, SELFPAY ==
[2020-10-30 14:52] VITALS: BMI 20.6
--- NOTE | ~2020-11-02 | BM_ITS ---
EXAMINATION: CCL bone marrow asp w bx diag DATE: 12/15/2020 12:15 INDICATION: Lymphoma. TECHNIQUE: A time-out was performed to verify the patient's name, date of , and procedure to b e performed. The procedure including the risks, benefits, and alternatives was discussed with the pat ient. Risks discussed included bleeding and infection. The patient understood the risks and agreed to proceed. The skin overlying the right ilium was prepped and draped in usual sterile fashion. Anest hetic was administered with 1% lidocaine subcutaneously. An 11 gauge needle was inserted into the desi um with fluoroscopic guidance. Bone marrow was aspirated. An 8 gauge needle was then inserted into th e ilium with fluoroscopic guidance. A core bone marrow biopsy was obtained. There were no immediate c omplications. Fluoroscopy exposure time was 0.0 minutes. The total number of images was 8. FINDINGS: Real-time fluoroscopy demonstrates a marker overlying the right posterior superior iliac sp ine. IMPRESSION: 1. Fluoro-guided bone marrow aspiration. 2. Fluoro-guided bone marrow core biopsy. Reviewed, dictated and finalized at location A. /[employer] WEAPONS EQUIPMENT OPERATOR
[2020-11-02 07:34] VITALS: BP 129/78; PULSE 70; RESP 18; TEMP 36.2; O2SAT 100; BMI 21.5
[2020-11-02 07:50] LABS: Basophils Absolute Auto 0.1 K/mm3 (0.0-0.1); Basophils Percent Auto 0.6 % (0.2-1.2); Eosinophils Absolute Auto 0.1 K/mm3 (0-0.3); Eosinophils Percent Auto 1.3 % (0-4.4); Hematocrit 27.8 % (42.0-52.0); Hemoglobin 8.9 g/dL (14.0-18.0); Immature Granulocyte Absolute 0.02 K/mm3 (0.00-0.031); Immature Granulocyte Percent A 0.2 % (0-0.5); Lymphocytes Absolute Auto 1.07 K/mm3 (0.9-3.2); Lymphocytes Percent Auto 12.4 % (18.3-44.2); Mean Corpuscular Hemoglobin 26.3 pg (26-34); Mean Platelet Volume 9.1 fl (7.4-10.4); Monocytes Absolute Auto 0.7 K/mm3 (0.1-0.6); Neutrophils Absolute Auto 6.7 K/mm3 (1.3-6.7); Neutrophils Percent Auto 77.5 % (45.5-73.1); Platelet Count Result 478 k/mm3 (150-375); Red Blood Count 3.39 M/mm3 (4.6-6.20); Red Cell Distribution Width 13.7 % (11.5-14.5); White Blood Count 8.6 K/mm3 (4.5-10.0)
[2020-11-02 07:59] LABS: Prothrombin Time 13.3 Seconds (11.1-14.7)
[2020-11-02 09:13] VITALS: BP 127/85; PULSE 71; RESP 16; TEMP 36.4; O2SAT 100
[2020-11-02 09:30] VITALS: BP 120/81; PULSE 68; RESP 15; O2SAT 100
[2020-11-02 09:45] VITALS: BP 133/88; PULSE 71; RESP 15; O2SAT 100
--- NOTE | 2020-11-02 10:06 | SUR.PHASEII ---
1000 Pt given discharge instructions with stated understanding. All Questions answered. Pt ambulating in room with steady gait. IV d/c'd with catheter intact. pressure applied no bleeding noted. Drsg to right posterior hip remains clean dry and intact. Pt transported via w/c to [employer] where his is driving him home in private vehicle
== END 2020-11-02 10:05 | disposition home or self-care (01) ==
PROVIDERS: Radiology Diagnostic Radiology; PCP Family Medicine Adolescent Medicine; Visit Provider Internal Medicine Hematology & Oncology
DX: C83.39 Diffuse large B-cell lymphoma, extranodal and solid organ sites (principal)
CPT/HCPCS: 36415; 38222; 85025; 85610; 88184; 88185; 88305; 88311; 88313; 88342; J2250; J3010; J7040

== ENCOUNTER 2020-11-04 11:42 | Outpatient (CLI) | payer MEDICARE, SELFPAY ==
[2020-11-04 22:32] LABS: SARS-CoV-2 RNA PCR Negative
== END 2020-11-04 11:43 | disposition home or self-care (01) ==
LOC: ANHCOVIDDT 11:43
PROVIDERS: PCP Family Medicine Adolescent Medicine; Visit Provider Surgery
DX: Z01.812 Encounter for preprocedural laboratory examination (principal); Z11.59 Encounter for screening for other viral diseases
CPT/HCPCS: 87635; C9803; U0003

== ENCOUNTER 2020-11-05 07:40 | Outpatient (CLI) | payer MEDICARE, SELFPAY ==
--- NOTE | 2020-11-05 | ECHO_ITS ---
Patient Info Name: Charles Rodriguez Age: 70 years : 1950 Gender: Male Ht: 75 in Wt: 164 lbs BSA: 1.97 m2 HR: 62 bpm BP: 123 / 67 mmHg Technical Quality: Good Exam Date: 11/05/2020 9:52 AM Exam Location: [facility] Patient Status: Outpatient Admit Date: 11/05/2020 Staff Ordering Physician: Oswaldo Garland MD Fire Extinguisher Repairer Inspector: Maryellen Haywood RCS Attending Provider: Oswaldo Garland MD Referring Physician: Dada PHAN; Exam Type: CA echo doppler color flow Study Info Indications z51.11 - encounter for antieoplastic chemotherapy Complete two-dimensional, color flow and Doppler transthoracic echocardiogram is performed. Strain analysis performed. Summary 1. Complete two-dimensional, color flow and Doppler transthoracic echocardiogram is performed. 2. Left ventricular chamber dimension is normal. 3. Left ventricular systolic function is normal, estimated at 60-65%. 4. The left ventricular diastolic function is normal. 5. E/e' 9 is minimally elevated. 6. Global longitudinal strain is normal at -22.4%. 7. The mitral valve has moderately calcified annulus. 8. There is mild mitral valve regurgitation. 9. There is mild tricuspid valve regurgitation. 10. No pulmonary hypertension, estimated pulmonary arterial systolic pressure is 29 mmHg. Left Ventricle E/e' 9 is minimally elevated. Global longitudinal strain is normal at -22.4%. Left ventricular chamber dimension is normal. Left ventricular systolic function is normal, estimated at 60-65%. The left ventricular diastolic function is normal. Right Ventricle Right ventricular chamber dimension is normal. Right ventricular systolic function is normal. Left Atria Left atrial chamber dimension is normal. Right Atria Right atrial chamber dimension is normal. Aortic Valve The aortic valve is trileaflet. There is no aortic valve stenosis. There is no aortic valve regurgitation. Pulmonic Valve There is no pulmonic regurgitation. Mitral Valve The mitral valve has moderately calcified annulus. There is no mitral valve stenosis. There is mild mitral valve regurgitation. Tricuspid Valve There is mild tricuspid valve regurgitation. No pulmonary hypertension, estimated pulmonary arterial systolic pressure is 29 mmHg. Pericardium/Pleural There is no pericardial effusion. Inferior Vena Cava Normal inferior vena cava with >50% collapse upon inspiration consistent with normal right atrial pressure, 5 mmHg. Aorta The aortic root size at the sinus of Valsalva is normal. Left Ventricular Outflow Tract Name Value Normal LVOT 2D LVOT Diameter 2.5 cm LVOT Doppler LVOT Peak Gradient 2 mmHg LVOT Mean Gradient 1 mmHg LVOT VTI 16 cm LVOT VTI/AV VTI Ratio 0.7 LVOT Stroke Volume 80 ml LVOT CO 5.5 l/min LVOT CI 2.8 l/min/m2 Mitral Valve Na
--- NOTE | ~2020-11-05 | PE_ITS ---
EXAMINATION: PET skull to mid thigh DATE: 11/05/2020 10:05 INDICATION: Diffuse large B-cell lymphoma TECHNIQUE: 8.8 mCi of 18-fluorodeoxyglucose (18-FDG) was administered i.v. Low dose computed tomograp hy (CT) images were acquired from the base of the brain to the proximal thighs for attenuation correc tion and anatomic localization. Positron emission tomography (PET) images were acquired after injecti on. Images including fused PET/CT images were reconstructed in axial, coronal, and sagittal planes. A utomatic exposure control is employed as a dose reduction technique. COMPARISON: CT dated 09/16/2020 FINDINGS: Head/neck: No cervical lymphadenopathy. Parapharyngeal spaces are symmetric. No abnormality of the mucosal space . No hypermetabolic activity in the neck. Chest: No cervical lymphadenopathy. Small hiatal hernia with mild thickening of the distal esophagus. Heart size normal. No thoracic lymphadenopathy. No significant pleural or pericardial effusion. No focal ai rspace disease. No suspicious pulmonary nodules or masses. No hypermetabolic activity. Abdomen/pelvis/proximal thighs: There is a 3 cm cyst of the left hepatic lobe. The spleen, pancreas, adrenal glands and left kidney a re unremarkable. There is right hydronephrosis. There is a right internal ureteral stent present. The re is atherosclerosis of the aorta. There are surgical changes consistent with interval bowel resecti on with ostomy in the mid abdomen anteriorly. There has been development of bilateral pelvic lymphade nopathy along the right common, bilateral internal iliac and right external iliac lymph node chains w ith prominent abnormal FDG uptake maximum SUV is 20.2 on the right and 14.7 on the left. The soft tis sues surrounds the right internal ureteral stent. Nonobstructive bowel gas pattern. Bones/Soft tissues: No hypermetabolic activity in the bones or soft tissues. There is a wedge compression deformity of T1 2, likely chronic. Mild thoracic and lumbar spondylosis. Mild osteoarthritis of the hips. There is sc oliosis. IMPRESSION: 1. Interval development of bilateral pelvic lymphadenopathy with brisk abnormal FDG uptake, compatibl e with patient's known lymphoma. There is encasement of the right ureter by a lymph node mass. Reviewed, dictated and finalized at location A. [employer] IMPRESSION: 1. Interval development of bilateral pelvic lymphadenopathy with brisk abnormal FDG uptake, compatible with patient's known lymphoma. There is encasement of t he right ureter by a lymph node mass.
[2020-11-05 08:21] LABS: Glucose Point of Care 92 (65-105)
== END 2020-11-05 07:41 | disposition home or self-care (01) ==
PROVIDERS: PCP Family Medicine Adolescent Medicine; Visit Provider Internal Medicine Hematology & Oncology
DX: C83.36 Diffuse large B-cell lymphoma, intrapelvic lymph nodes (principal); Z01.810 Encounter for preprocedural cardiovascular examination; I34.0 Nonrheumatic mitral (valve) insufficiency; I36.1 Nonrheumatic tricuspid (valve) insufficiency
CPT/HCPCS: 78815; 93306; A9552

== ENCOUNTER 2020-11-06 00:31 | Day surgery (SDC) | payer MEDICARE, SELFPAY ==
[2020-11-04 14:37] VITALS: BMI 20.5
--- NOTE | 2020-11-05 09:57 | WPDANESEPPF ---
Anes - Initial Pre Proc Eval Procedure: Operation Date: 11/06/20 12:30 Proposed Procedures p Insertion Arash Cath - Lisa Hinton MD Date/Time: 11/05/20 09:57 Surgeon: Lisa Hinton MD Pre Op Diagnosis: Small Bowel Lymphonm Patient Data Age: 70 Gender: M Height: 1.91 m Weight: 74.4 kg Allergies Allergy/AdvReac Type Severity Reaction Status Date / Time No Known Allergies Allergy Verified 11/06/20 10:26 Home Medications Medication Instructions Recorded Confirmed Type cholecalciferol (vitamin D3) 25 25 mcg PO DAILY 09/18/20 11/06/20 History mcg (1,000 unit) capsule flaxseed oil 1,000 mg capsule 1,000 mg PO EVERY OTHER DAY 09/18/20 11/06/20 History multivitamin,qt-qnek-oemflmfa 1 tablet PO EVERY OTHER DAY 09/18/20 11/06/20 History omega-3 fatty acids 1,000 mg 1,000 mg PO EVERY OTHER DAY 09/18/20 11/06/20 History capsule Patient hx anesthesia problems: none Family hx anesthesia problems: none PMFSH Past Medical History Medical History (Updated 11/05/20 @ 09:57 by Mello Wesley DO) BPH (benign prostatic hyperplasia) History of kidney stones Large B-cell lymphoma Lower abdominal pain Surgical History Surgical History H/O bilateral inguinal hernia repair History of exploratory laparotomy 10/19/20 exploratory laparotomy, lysis of adhesions including mobilization of the right colon, small bowel resection History of tonsillectomy Family History Family History Father Family history of diabetes mellitus in first degree relative Family history of congestive heart failure Hypertension Mother Family history of malignant neoplasm of kidney Social History Social History Smoking status: Former smoker Alcohol intake: current Drinks per week: 1 Alcohol use details: TWO DRINKS PER MONTH Substance use: never Substance use type: does not use Living arrangements: with family Gender identity (if verbalized by the patient): Male Spiritual care concerns: No Anes - Eval Final PreProcedure Day of Procedure 11/05/20 09:57 Patient weight: normal Heart: regular rate and rhythm Lungs: clear to auscultation and normal air movement Airway: Mallampati scale class II Neurological: alert and oriented Last oral intake: >/= 8 hours ASA classification: III Emergent: no Anesthetic plan: proceed Anesthesia type and monitoring: general GIVS and standard monitoring Informed Consent: The patient's anesthetic plan and its attendant risks and benefits were discussed with the patient/family/POA. Questions were solicited and answers provided to the satisfaction of the patient/family/POA.
--- NOTE | ~2020-11-06 | XR_ITS ---
XR chest port-a-cath/central DATE: 11/06/2020 13:32 INDICATION: Port-A-Cath insertion TECHNIQUE: Portable AP chest views on 11/06/2020 at 1332 and 1333 hours COMPARISON: 11/09/2007 PA and lateral chest FINDINGS: Interval placement of left Port-A-Cath via left subclavian vein, with catheter tip overlyin g mid superior vena cava. No evidence of pneumothorax. No pulmonary infiltrate or consolidation, pleural effusion or pulmonary vascular congestion. Normal heart size. Aortic arch calcification and mild aortic tortuosity. Moderate osteopenia. There is minimal levoscoliosis of the thoracic spine, as well as degenerative sp urring. IMPRESSION: Left subclavian Port-A-Cath catheter placement in mid superior vena cava; no pneumothorax Reviewed, dictated and finalized at Location A. Reviewed, dictated and finalized at location B. CY SERVICE COORDINATOR
--- NOTE | ~2020-11-06 | XR_ITS ---
XR fl guide central line place 11/06/2020 13:09 Indication: Insertion of portacatheter Procedure: 4 fluoroscopic images of the chest. 13 seconds of fluoroscopy. Comparison: 11/09/2007 Findings: There is a edda catheter, extending via the left subclavian vein into the SVC. Please refe r to procedural report for details. Impression: 1: Portacatheter tip in the mid SVC. Reviewed, dictated and finalized at location A. TAL COMMENTATOR Impression: 1: Portacatheter tip in the mid SVC.
[2020-11-06] MEDS: LACTATED RINGERS 1,000 ML 30 ML IV CONT ×2 (10:51→13:17)
[2020-11-06] MEDS: KETOROLAC 15 MG/ML VIAL (*BKC) IV PUSH (10:55)
[2020-11-06 10:57] VITALS: BP 117/65; PULSE 78; RESP 16; TEMP 36.6; O2SAT 100
[2020-11-06 11:30] LABS: Partial Thromboplastin Time 28.6 SECONDS (22.3-36.8)
--- NOTE | 2020-11-06 11:40 | WPDHPUPDATE1 ---
History and Physical Update Update Date/Time: 11/06/20 11:40 History and Physical has been reviewed, including an updated exam of the patient. There are NO changes in the patient's condition. Risks, benefits, and alternatives have been discussed and questions answered. Patient agrees to proceed with procedure. plan to place L sided VAD for chemo access
--- NOTE | 2020-11-06 12:11 | SUR.PREOP ---
Up to bathroom.
[2020-11-06] MEDS: ceFAZolin 2 GM/D5W 50 ML 2 GM/50 ML BAG IVPB (12:34)
[2020-11-06] MEDS: BUPIVACAINE HCL 0.5% PF 30 ML VIAL INFILTRATE (13:00)
[2020-11-06] MEDS: HEPARIN SODIUM, PORCINE 10,000 UNITS/10 ML VIAL 10000 UNITS IRRIGATION (13:00)
[2020-11-06] MEDS: HEPARIN SODIUM 5,000 UNITS/ML VIAL 5000 UNITS IRRIGATION (13:01)
--- NOTE | 2020-11-06 13:12 | P.OP_ITS ---
Procedure Note - Detailed Date of procedure: 11/06/20 Pre-op diagnosis: Small Bowel Lymphonm small bowel lymphoma Post-op diagnosis: same Procedure performed: placement of left subclavian venous access device under fluroscopic guidance Description of procedure: Patient was brought into the operating room and placed in the supine position. After adequate induction of mac anesthesia, the patient was prepped and draped in normal sterile fashion. Time-out was then done to verify the patient's identity, as well as the procedure being performed. I began by making a small incision in the left chest, I then gained access into the left subclavian vein with an 18 gauge needle. I then placed the guidewire into the vein and confirmed placement via fluoroscopic guidance. I then locally anesthetized the area in the left chest. I then enlarged the incision around the guidewire including making a subcutaneous pocket inferiorly to allow placement of the port itself. I then placed a dilating sheath over the guidew danny into the left subclavian vein via sterile Seldinger technique. This was once again done and confirmed via fluoroscopic guidance. I then removed the dilator and the guidewire, now just leaving the sheath in the vein. I then fed the previously flushed catheter into the left subclavian vein under fluoroscopic guidance. At approximately 20 cm, the catheter was noted to be near the atrial caval junction. I then peeled away the sheath, now just leaving the catheter in the vein. I then was able to easily draw and flush from the catheter. The catheter was cut to fit and attached to the port itself. The port was placed into the previously made subcutaneous pocket and sutured in with 0 Ethibond suture. Final fluoroscopic view showed the termination of the catheter at the atrial caval junction with a nice smooth curvature back to the port itself. I was able to gain access to the port with a Allan needle and was able to easily draw and flush from the port. I then flushed 4 cc of a final heparin flush into the port. The incision was closed with 3 0 Vicryl suture in the subcutaneous tissue and the skin was closed with 4 O Monocryl subcuticular suture. Dermabond was then placed on wound. The patient tolerated the procedure well and will be sent to the recovery room in stable condition. Implants: L SCV VAD Anesthesia: MAC and local Surgeon: Lisa Hinton MD Estimated blood loss (mL): 5 Drains: No Packing: No Pathology: none sent Complications: No immediate complications Condition: stable Disposition: PACU Findings: placement of L SCV VAD via 1st stick
[2020-11-06 13:17] VITALS: BP 114/68; PULSE 80; RESP 16; O2SAT 100
[2020-11-06 13:45] VITALS: BP 122/74; PULSE 66; RESP 18; O2SAT 100
[2020-11-06 14:15] VITALS: BP 121/71; PULSE 68; RESP 16
== END 2020-11-06 14:36 | disposition home or self-care (01) ==
PROVIDERS: PCP Family Medicine Adolescent Medicine; Visit Provider Surgery
PROC: (CPT 36561; principal; 2020-11-06 12:30)
DX: C85.89 Other specified types of non-Hodgkin lymphoma, extranodal and solid organ sites (principal); N40.0 Benign prostatic hyperplasia without lower urinary tract symptoms; Z87.442 Personal history of urinary calculi; Z87.891 Personal history of nicotine dependence
CPT/HCPCS: 36561; 36415; 77001; 85730; C1788; J0690; J1644; J1885; J2250; J2405; J2704; J3010; J7030; J7120

== ENCOUNTER 2020-11-10 07:00 | Outpatient (RCR) | payer MEDICARE, SELFPAY ==
[2020-11-10] VITALS (7 sets, daily range): BP systolic 110–129; BP diastolic 61–85; PULSE 71–81; RESP 14–16; TEMP 36.3–37; O2SAT 100
[2020-11-10 07:47] LABS: Hematocrit 26.5 % (42.0-52.0); Hemoglobin 8.3 g/dL (14.0-18.0)
[2020-11-10] MEDS: diphenhydrAMINE HCl CAP 25 MG CAPSULE (08:01)
[2020-11-10] MEDS: ACETAMINOPHEN 325 MG TABLET 650 MG (08:01)
[2020-11-10] MEDS: FUROSEMIDE INJ 40 MG/4 ML VIAL (11:24)
== END 2021-02-08 23:59 | disposition home or self-care (01) ==
LOC: ANHCPCTRAN 07:00
PROVIDERS: PCP Family Medicine Adolescent Medicine; Visit Provider Internal Medicine Hematology & Oncology
DX: C83.39 Diffuse large B-cell lymphoma, extranodal and solid organ sites (principal)
CPT/HCPCS: 36415; 36430; 85014; 85018; 86850; 86900; 86901; 86923; 96374; A9270; J1940; J7050; P9016

== ENCOUNTER 2021-05-04 10:17 | Outpatient (CLI) | payer MEDICARE, SELFPAY ==
--- NOTE | ~2021-05-04 | CT_ITS ---
EXAMINATION: CT chest abdomen pelvis w con EXAM DATE: 05/04/2021 10:46 INDICATION: Diffuse large B-cell lymphoma. TECHNIQUE: Spiral CT of the chest, abdomen and pelvis was performed following intravenous injection o f 100 mL Omnipaque 350. Axial, coronal and sagittal images chest, abdomen and pelvis were reviewed. Coronal maximum intensity pixel images of chest reviewed. The dose-length product (DLP) for this ex amination was 482.00 mGy-cm. The exposure was tailored according to patient size (auto mA exposure c ontrol), and iterative reconstruction (ASIR) was used as additional dose reduction technique. Correla tion is made to PET/CT 11/05/2020. FINDINGS: CHEST: The lungs are clear. There is a left-sided portacatheter. There are no pleural or pericardial effusions. Tracheobronchial tree is patent. There is no mediastinal, hilar or axillary lymphaden opathy. There is no pneumothorax. Heart normal in size. There is mild to moderate coronary grisel rial calcification, arterial sclerosis. ABDOMEN PELVIS: PET/CT from October demonstrated sizable bilateral pelvic lymphadenopathy which has normalized in size. No inguinal, pelvic or retroperitoneal lymphadenopathy on today's exam. The large st liver cyst is in the left liver lobe, measures 3 cm. The spleen, pancreas, and adrenal glands are unremarkable. Gallbladder is unremarkable. No biliary obstruction. Portal and splenic veins are p atent. Kidneys enhance symmetrically. There is no hydronephrosis. There is a left renal cyst measur ing 1.4 cm. There is mild to moderate prostatomegaly. The bladder is unremarkable. There is mild sc attered arteriosclerotic disease. There are no findings to suggest appendicitis. There is moderate-sized gastroesophageal hiatal herni a. There is expected amount of colonic stool. No free intraperitoneal gas. There are no osteobla stic or osteolytic lesions identified. There is moderate lumbar dextroscoliosis. IMPRESSION: 1. Resolution of lymphadenopathy seen on October spiral CT. 2. Moderate hiatal hernia. 3. Prostatomegaly. Reviewed, dictated and finalized at location B.
[2021-05-04 11:41] LABS: Estimated Glomerular Filt Rate > 60
== END 2021-05-04 10:18 | disposition home or self-care (01) ==
PROVIDERS: PCP Family Medicine Adolescent Medicine; Referring Provider Surgery; Visit Provider Internal Medicine Hematology & Oncology
DX: C83.30 Diffuse large B-cell lymphoma, unspecified site (principal); K44.9 Diaphragmatic hernia without obstruction or gangrene; N40.0 Benign prostatic hyperplasia without lower urinary tract symptoms
CPT/HCPCS: 71260; 74177; Q9967

== ENCOUNTER 2021-10-21 08:54 | Outpatient (CLI) | payer MEDICARE, SELFPAY ==
--- NOTE | ~2021-10-21 | CT_ITS ---
EXAMINATION: CT abdomen pelvis w con DATE: 10/21/2021 09:38 INDICATION: Diffuse large B-cell lymphoma. TECHNIQUE: Computed tomography (CT) of the abdomen and pelvis was performed with 100 mL Omnipaque 350 intravenous contrast. Automated exposure control and iterative reconstruction technique were employe d. The dose-length product was 343.64 mGy-cm. COMPARISON: CT abdomen and pelvis 05/04/2021 FINDINGS: The visualized portions of the lung bases demonstrate minimal atelectasis. No pleural effus ion. The heart size is normal. No pericardial effusion. There is a large sliding hiatal hernia. There are cysts in the liver measuring up to 3.2 cm. The gallbladder, spleen, pancreas, and adrenal glands are normal. There is cortical thinning of the kidneys. There is a 1.8 cm cyst in left kidney. The pr ostate is moderately enlarged. There are no dilated loops of bowel. The appendix is normal. There are no pathologically enlarged lymph nodes. There is severe lumbar spondylosis. There is thoracolumbar d extroscoliosis. There is a chronic compression fracture of T12. IMPRESSION: 1. No evidence of lymphoma. 2. Large sliding hiatal hernia. Reviewed, dictated and finalized at location A. [employer]ER
[2021-10-21 09:32] LABS: Estimated Glomerular Filt Rate > 60
== END 2021-10-21 08:55 | disposition home or self-care (01) ==
LOC: ANHIMG 08:59
PROVIDERS: PCP Family Medicine Adolescent Medicine; Visit Provider Internal Medicine Hematology & Oncology
DX: C83.30 Diffuse large B-cell lymphoma, unspecified site (principal); K44.9 Diaphragmatic hernia without obstruction or gangrene; M47.816 Spondylosis without myelopathy or radiculopathy, lumbar region; S22.089A Unspecified fracture of T11-T12 vertebra, initial encounter for closed fracture; M41.9 Scoliosis, unspecified
CPT/HCPCS: 36415; 74177; 80053; 83615; 85025; Q9967

== ENCOUNTER 2022-07-22 08:26 | Outpatient (CLI) | payer MEDICARE, SELFPAY ==
--- NOTE | ~2022-07-22 | CT_ITS ---
EXAMINATION: CT abdomen pelvis w con DATE: 07/22/2022 09:19 INDICATION: Diffuse large B cell lymphoma TECHNIQUE: Computed tomography (CT) of the abdomen and pelvis was performed with 100 CC Omnipaque 350 intravenous contrast. Automated exposure control and iterative reconstruction technique were employe d. Exam dose: 356.11 mGy-cm total exam DLP. COMPARISON: 10/21/2021 CT abdomen pelvis FINDINGS: The lung bases are clear of infiltrate or consolidation. Normal heart size. No pericardial or pleural effusion. Large hiatal hernia. Occasional hepatic cysts, stable since 10/21/2021 the largest measuring up to approximately 3.2 cm, th e left hepatic lobe. The gallbladder is present. No bile duct dilatation Normal splenic size. No pancreatic mass lesion, calcification or ductal dilatation. Normal morphology of the adrenal glands. Approximately 1.7 cm lower pole left renal cyst. No urinary tract calculus or hydroureteronephrosis. The urinary bladder is unremarkable. There is prostate enlargement and calcification. There is atherosclerotic calcification but normal caliber of the abdominal aorta, iliac and femoral a rteries. No intraperitoneal or retroperitoneal or pelvic mass lesion or adenopathy or ascites. Sutures are noted in the distal small bowel. No bowel obstruction or intraperitoneal free air is dete cted. Moderately prominent anterior wedge compression fracture deformity of T12. There is scoliosis and mul tilevel degenerative disc disease of the lumbar spine, the degenerative disc disease particularly pro minent at L3-4, L4-5 and L5-S1. Bilateral hip osteoarthritis. No suspicious osteolytic or osteoblastic lesions. IMPRESSION: No evidence of recurrent lymphoma Large sliding hiatal hernia Postoperative change of the distal small bowel Hepatic cysts 1.7 cm lower pole left renal cyst Prostate enlargement Scoliosis and multilevel degenerative disc disease of the lumbar spine Chronic T12 compression fracture Bilateral hip osteoarthritis Reviewed, dictated and finalized at Location A. Reviewed, dictated and finalized at location B.
[2022-07-22 09:00] LABS: Estimated Glomerular Filt Rate > 60
== END 2022-07-22 08:27 | disposition home or self-care (01) ==
PROVIDERS: PCP Family Medicine Adolescent Medicine; Visit Provider Internal Medicine Hematology & Oncology
DX: C83.30 Diffuse large B-cell lymphoma, unspecified site (principal); K44.9 Diaphragmatic hernia without obstruction or gangrene; M47.817 Spondylosis without myelopathy or radiculopathy, lumbosacral region; K76.89 Other specified diseases of liver; M16.0 Bilateral primary osteoarthritis of hip; M41.9 Scoliosis, unspecified
CPT/HCPCS: 74177; Q9967

== ENCOUNTER 2023-01-31 08:51 | Outpatient (CLI) | payer MEDICARE, SELFPAY ==
--- NOTE | ~2023-01-31 | CT_ITS ---
Clinical Indication: Lymphoma CT Scan of the Chest, Abdomen, and Pelvis with Contrast: Technique: Contiguous sections were acquired throughout the chest, abdomen, and pelvis after intraven ous administration of 100 cc of Omnipaque 350. Dose reduction technique was used on this scan by david tucker automated exposure control and iterative reconstruction technique. The dose-length product (DL P) was 518.31 mGy-cm. COMPARISON: 07/22/2022 Findings: There is no evidence of any significant mediastinal, hilar or axillary lymphadenopathy. The mediastin al soft tissues and vascular structures appear normal. Large hiatal hernia noted. There is no evidence of pleural or pericardial effusion. The lungs are clear. No pulmonary nodules or infiltrates are noted. Stable hepatic cysts noted. The spleen, pancreas, gallbladder, adrenals and kidneys are within normal limits. No evidence of aortic aneurysm. There are atherosclerotic calcifications of the aorta. No l ymphadenopathy. No bowel obstruction or bowel wall thickening. There is no evidence to suggest acute appendicitis. Urinary bladder is unremarkable. Prostate gland is enlarged. Mild compression deformity of T12 is unc hanged. Impression: No evidence for active malignancy or metastatic disease. No pathologic lymphadenopathy identified. Stable large hiatal hernia. Stable mild compression deformity of T12. Reviewed, dictated and finalized at location . Impression: No evidence for active malignancy or metastatic disease. No pathologic lymphade nopathy identified. Stable large hiatal hernia. Stable mild compression deformity of T12.
[2023-01-31 09:28] LABS: Estimated Glomerular Filt Rate > 60
== END 2023-01-31 08:52 | disposition home or self-care (01) ==
PROVIDERS: PCP Family Medicine Adolescent Medicine; Referring Provider Surgery; Visit Provider Internal Medicine Hematology & Oncology
DX: C83.30 Diffuse large B-cell lymphoma, unspecified site (principal); K44.9 Diaphragmatic hernia without obstruction or gangrene
CPT/HCPCS: 71260; 74177; Q9967

== ENCOUNTER 2023-03-17 01:23 | Day surgery (SDC) | payer MEDICARE, SELFPAY ==
[2023-03-09 08:08] VITALS: BMI 21.2
--- NOTE | 2023-03-16 09:58 | WPDANESEPPF ---
Anes - Initial Pre Proc Eval Procedure: Operation Date: 03/17/23 08:00 Proposed Procedures p Screening Colonoscopy - Oleksandr Liriano MD Date/Time: 03/16/23 09:58 Surgeon: Oleksandr Liriano MD Pre Op Diagnosis: neoplasm screening Patient Data Age: 72 Gender: M Height: 1.91 m Weight: 77 kg Allergies Allergy/AdvReac Type Severity Reaction Status Date / Time No Known Allergies Allergy Verified 03/17/23 06:39 Home Medications Medication Instructions Recorded Confirmed Type ferrous sulfate 325 mg (65 mg 325 mg PO DAILY 11/17/20 03/17/23 History iron) tablet ascorbic acid (vitamin C) 250 mg 250 mg PO TID 02/10/21 03/17/23 History tablet (Vitamin C) magnesium 200 mg tablet 200 mg PO DAILY 03/09/23 03/17/23 History mecobalamin (vitamin B12) 2,500 2,500 mcg PO DAILY 03/09/23 03/17/23 History mcg chewable tablet Patient hx anesthesia problems: none Family hx anesthesia problems: none Results Review: All pre-operative results and documents have been reviewed as part of the pre-operative evaluation. [facility] Past Medical History Medical History (Updated 03/16/23 @ 10:00 by Mello Wesley DO) Aortic atherosclerosis (09/2016) BPH (benign prostatic hyperplasia) History of kidney stones Hydroureter, right Large B-cell lymphoma Small bowel Surgical History Surgical History (Updated 10/14/22 @ 07:08 by Luca Hanna MD) H/O bilateral inguinal hernia repair Right 2006 History of exploratory laparotomy 10/19/20 exploratory laparotomy, lysis of adhesions including mobilization of the right colon, small bowel resection History of resection of small bowel (09/2020) History of tonsillectomy Family History Family History Father Family history of diabetes mellitus in first degree relative Family history of congestive heart failure Hypertension Mother Family history of malignant neoplasm of kidney Social History Social History Smoking status: Never smoker Alcohol intake: current Drinks per week: 1 Alcohol use details: rarely Substance use: never Substance use type: does not use Living arrangements: with family Occupation/Education: retired Gender identity (if verbalized by the patient): Male Spiritual care concerns: No Anes - Eval Final PreProcedure Day of Procedure 03/16/23 09:58 Patient weight: normal Heart: regular rate and rhythm Lungs: clear to auscultation and normal air movement Airway: Mallampati scale class II Neurological: alert and oriented Last oral intake: >/= 8 hours ASA classification: III Emergent: no Anesthetic plan: proceed Anesthesia type and monitoring: general GIVS and standard monitoring Results Review: All pre-operative results and documents have been reviewed as part of the pre-operative evaluation. Informed Consent: The patient's anesthetic plan and its attendant risks and benefits were discussed with the patient/family/POA. Questions were solicited and answers provided to the satisfaction of the patient/family/POA.
[2023-03-17 06:40] VITALS: BP 119/64; PULSE 72; RESP 18; TEMP 35.8; O2SAT 100
[2023-03-17] MEDS: LACTATED RINGERS 1,000 ML 150 ML IV CONT (06:44)
--- NOTE | 2023-03-17 07:54 | PM.HPGS ---
History of Present Illness History of Present Illness Consent: Risks, benefits, and alternatives have been discussed and questions answered. Patient agrees to proceed with procedure. Chief complaint: neoplasm screening Narrative: Charles Rodriguez is a 72 year old male with colon screening, last colonoscopy 2015, had SB lymphoma now on remission Review of Systems Constitutional: Constitutional: Denies headache(s) and Denies weakness Eyes: Eyes: Denies blurry vision ENT: Reports Normal hearing present, Denies headache(s) and Denies neck pain Cardiovascular: Cardiovascular: Denies chest pain and Denies dyspnea Respiratory: Respiratory: Denies dyspnea Gastrointestinal: Gastrointestinal: Reports no additional gastrointestinal complaints Genitourinary: Genitourinary: Denies dysuria Musculoskeletal: Musculoskeletal: Denies neck pain Integumentary/Breasts: Skin/Breast: Denies dry skin Neurologic: Reports Normal hearing present, Denies headache(s) and Denies weakness Psychiatric: Psychiatric: Denies anxiety Endocrine: Endocrine: Denies change in body appearance Hematologic/Lymphatic: Hematologic/Lymphatic: Denies easy bleeding Allergic/Immunologic: Allergic/Immunologic: Denies urticaria PMFSH Past Medical History Medical History (Updated 03/17/23 @ 07:55 by Oleksandr Liriano MD) Aortic atherosclerosis (09/2016) BPH (benign prostatic hyperplasia) Colon cancer screening History of kidney stones Hydroureter, right Large B-cell lymphoma Small bowel Surgical History Surgical History (Updated 10/14/22 @ 07:08 by Luca Hanna MD) H/O bilateral inguinal hernia repair Right 2006 History of exploratory laparotomy 10/19/20 exploratory laparotomy, lysis of adhesions including mobilization of the right colon, small bowel resection History of resection of small bowel (09/2020) History of tonsillectomy Family History Family History Father Family history of diabetes mellitus in first degree relative Family history of congestive heart failure Hypertension Mother Family history of malignant neoplasm of kidney Social History Social History Smoking status: Never smoker Alcohol intake: current Drinks per week: 1 Alcohol use details: rarely Substance use: never Substance use type: does not use Living arrangements: with family Occupation/Education: retired Gender identity (if verbalized by the patient): Male Spiritual care concerns: No Meds Home Medications and Allergies Home Medications Medication Instructions Recorded Confirmed Type ferrous sulfate 325 mg (65 mg 325 mg PO DAILY 11/17/20 03/17/23 History iron) tablet ascorbic acid (vitamin C) 250 mg 250 mg PO TID 02/10/21 03/17/23 History tablet (Vitamin C) magnesium 200 mg tablet 200 mg PO DAILY 03/09/23 03/17/23 History mecobalamin (vitamin B12) 2,500 2,500 mcg PO DAILY 03/09/23 03/17/23 History mcg chewable tablet Allergies Allergy/AdvReac Type Severity Reaction Status Date / Time No Known Allergies Allergy Verified 03/17/23 06:39 Vital Signs Vital Signs - 24 hr 03/17/23 06:40 Temperature 96.5 F L Pulse Rate 72 Respiratory Rate 18 Blood Pressure 119/64 Pulse Oximetry 100 Oxygen Delivery Room Air Exam Const: General: comfortable and no acute distress HENMT: Face/Nose/Sinus: Normal nares present Eyes: General: appearance normal, both eyes and all related structures Neck: Neck: no JVD Resp: Auscultation: clear to auscultation bilaterally Cardio: Rate: regular rate Rhythm: regular rhythm GI: Inspection: non-distended GI Palp: Yes Soft to palpation Skin: General skin exam: normal color Neuro: General: gait normal Speech: normal speech Extrem: General: normal to inspection Psych: Mental Status: mental status grossly normal Assessment and
[2023-03-17 08:17] VITALS: BP 102/69; PULSE 64; RESP 21; O2SAT 100
[2023-03-17 08:27] VITALS: BP 105/70; PULSE 63; RESP 22; O2SAT 100
[2023-03-17 08:37] VITALS: BP 110/74; PULSE 61; RESP 20; O2SAT 100
== END 2023-03-17 08:46 | disposition home or self-care (01) ==
PROVIDERS: PCP Family Medicine Adolescent Medicine; Visit Provider Internal Medicine Gastroenterology
PROC: 0DJD8ZZ Inspection of Lower Intestinal Tract, Via Natural or Artificial Opening Endoscopic (ICD-10-PCS; CPT 45378; principal; 2023-03-17 08:00)
DX: Z12.11 Encounter for screening for malignant neoplasm of colon (principal); K64.8 Other hemorrhoids; Z85.72 Personal history of non-Hodgkin lymphomas
CPT/HCPCS: G0121; J2704; J7120

== ENCOUNTER 2023-03-30 00:41 | Day surgery (SDC) | payer MEDICARE, SELFPAY ==
--- NOTE | 2023-03-22 13:04 | PC.NURSE ---
Report to the Outpatient Waiting Room, entrance under the green pavilion located off [facility], at time __0600 on date ___03/30/23____. Planned Procedure Time: ___30 . Time changes happen often and if your time is changed the preop area will call you the afternoon before. - You and your visitor will be asked to self-screen and do not enter if you have any COVID symptoms. - A mask is optional within the hospital at this time. Patients may have clear liquids (water, carbonated beverages, clear teas, apple juice) until 3 hours prior to surgery with a maximum of 20 ounces. - No food from midnight until time of surgery - Infants may have breast milk until 4 hours before surgery, infant formula 6 hours prior to surgery. - Children will be allowed to drink immediately following surgery. If applicable, please bring a bottle or sippy cup to assist with drinking. Juice, water, soda, and popsicles are readily available. For infants on formula, please bring formula the day of surgery. Pacifiers are allowed. Take the following medications with a SIP of water the morning of surgery: NONE DO NOT STOP ANY OF YOUR OTHER PRESCRIPTION MEDICATIONS PRIOR TO SURGERY ?EXCEPT THE FOLLOWING Medications to discontinue per physician ALL VITAMINS/SUPPLEMENTS 3 DAYS PRE OP.LAST DOSE 03/26/23 Please no make-up, nail liberian, hairspray, perfume, deodorant, or body powder the day of surgery. No jewelry (including any body piercings) or valuables the day of surgery, leave them at home. Please take a shower or bath the night before, or the morning of, surgery with an antibacterial soap. Wear comfortable, loose fitting clothing. Children are encouraged to wear pajamas. - Jewelry must be removed prior to entering the operating room. Rings and piercings that are not removed may be cut off. - The hospital will not accept responsibility for valuables. - Please leave all valuables, including medications, at home the day of surgery. If you are going home after surgery, a licensed oil transport driver must drive you home. - NO public transportation without another adult if you receive anesthesia. - We recommend that an adult stay with you for 24 hours following discharge. - We also recommend that you do not drive, make important decision, drink alcoholic beverages, or take any drugs that were not prescribed by your health care provider for at least 24 hours after your discharge time. For Pediatric surgeries, we recommend two adults accompany the child home. Follow any additional instructions given to you from your surgeon. If you or anyone in your household have experienced Covid symptoms in the past week, please notify your surgeon or the nurse liaison at the phone number below for possible testing. Telephone instructions given to ___PATIENT and asked if any additional questions and then verbalized understanding. Patient advised to call surgeon office or pre surgery nurse liaison [phone] if any additional questions.
[2023-03-22 13:09] VITALS: BMI 21.7
--- NOTE | 2023-03-30 07:24 | PM.IMHP ---
H&P: HPI History of Present Illness Date/Time: 03/30/23 07:24 Chief Complaint: lymphoma Narrative: Pt is a 72 y/o M s/p adjuvant treatment for lymphoma. Pt has completed cycle and has no evidence of residual disease at this time. Pt had L SCV VAD placed 11/08. Pt denies any issues c port. Review of Systems Review of Systems: All systems reviewed & are unremarkable except as noted in HPI and below PMFSH Past Medical History Medical History Aortic atherosclerosis (09/2016) BPH (benign prostatic hyperplasia) Colon cancer screening History of kidney stones Hydroureter, right Large B-cell lymphoma Small bowel Surgical History Surgical History H/O bilateral inguinal hernia repair Right 2006 History of exploratory laparotomy 10/19/20 exploratory laparotomy, lysis of adhesions including mobilization of the right colon, small bowel resection History of resection of small bowel (09/2020) History of tonsillectomy Family History Family History Father Family history of diabetes mellitus in first degree relative Family history of congestive heart failure Hypertension Mother Family history of malignant neoplasm of kidney Social History Social History Smoking status: Never smoker Alcohol intake: current Drinks per week: 1 Alcohol use details: rarely Substance use: never Substance use type: does not use Living arrangements: with family Occupation/Education: retired Gender identity (if verbalized by the patient): Male Spiritual care concerns: No Meds Home Medications and Allergies Home Medications Medication Instructions Recorded Confirmed Type ferrous sulfate 325 mg (65 mg 325 mg PO QMWF 11/17/20 03/22/23 History iron) tablet ascorbic acid (vitamin C) 250 mg 250 mg PO QMWF 02/10/21 03/22/23 History tablet (Vitamin C) magnesium 200 mg tablet 200 mg PO DAILY LEG CRAMPS 03/09/23 03/22/23 History mecobalamin (vitamin B12) 2,500 2,500 mcg PO DAILY 03/09/23 03/22/23 History mcg chewable tablet calcium carbonate 200 mg calcium 200 mg PO PRN PRN Heartburn 03/22/23 03/22/23 History (500 mg) chewable tablet (Tums) Allergies Allergy/AdvReac Type Severity Reaction Status Date / Time No Known Allergies Allergy Verified 03/22/23 12:53 Exam Const: General: cooperative, comfortable and no acute distress Chest: Other: L SCV VAD - C/D/I Resp: Auscultation: clear to auscultation bilaterally Cardio: Rate: regular rate Rhythm: regular rhythm GI: Inspection: normal to inspection Assessment and Plan Assessment and plan (1) Large B-cell lymphoma: Code(s): C85.10 - Unspecified B-cell lymphoma, unspecified site Status: Acute Assessment and Plan: will setup for VAD removal
[2023-03-30 07:30] VITALS: BMI 21.2
[2023-03-30 07:35] VITALS: BP 128/98; PULSE 62; RESP 16; TEMP 36.2; O2SAT 100
[2023-03-30] MEDS: LACTATED RINGERS 1,000 ML 30 ML IV CONT (08:10)
--- NOTE | 2023-03-30 08:24 | P.PNAN_ITS ---
Anes - Initial Pre Proc Eval Procedure: Operation Date: 03/30/23 09:30 Proposed Procedures p Removal Arash Cath - Lisa Hinton MD Date/Time: 03/30/23 08:24 Surgeon: Lisa Hinton MD Pre Op Diagnosis: Diffuse Large B-cell Lymphoma Patient Data Age: 72 Gender: M Height: 1.91 m Weight: 78.99 kg Allergies Allergy/AdvReac Type Severity Reaction Status Date / Time No Known Allergies Allergy Verified 03/22/23 12:53 Home Medications Medication Instructions Recorded Confirmed Type ferrous sulfate 325 mg (65 mg 325 mg PO QMWF 11/17/20 03/22/23 History iron) tablet ascorbic acid (vitamin C) 250 mg 250 mg PO QMWF 02/10/21 03/22/23 History tablet (Vitamin C) magnesium 200 mg tablet 200 mg PO DAILY LEG CRAMPS 03/09/23 03/22/23 History mecobalamin (vitamin B12) 2,500 2,500 mcg PO DAILY 03/09/23 03/22/23 History mcg chewable tablet calcium carbonate 200 mg calcium 200 mg PO PRN PRN Heartburn 03/22/23 03/22/23 History (500 mg) chewable tablet (Tums) Patient hx anesthesia problems: none Family hx anesthesia problems: none Results Review: All pre-operative results and documents have been reviewed as part of the pre- operative evaluation. [facility] Past Medical History Medical History Aortic atherosclerosis (09/2016) BPH (benign prostatic hyperplasia) Colon cancer screening History of kidney stones Hydroureter, right Large B-cell lymphoma Small bowel Surgical History Surgical History H/O bilateral inguinal hernia repair Right 2006 History of exploratory laparotomy 10/19/20 exploratory laparotomy, lysis of adhesions including mobilization of the right colon, small bowel resection History of resection of small bowel (09/2020) History of tonsillectomy Family History Family History Father Family history of diabetes mellitus in first degree relative Family history of congestive heart failure Hypertension Mother Family history of malignant neoplasm of kidney Social History Social History Smoking status: Never smoker Alcohol intake: current Drinks per week: 1 Alcohol use details: rarely Substance use: never Substance use type: does not use Living arrangements: with family Occupation/Education: retired Gender identity (if verbalized by the patient): Male Spiritual care concerns: No Anes - Eval Final PreProcedure Day of Procedure 03/30/23 08:24 Patient weight: normal Heart: regular rate and rhythm Lungs: clear to auscultation Airway: Mallampati scale class II Neurological: alert and oriented Last oral intake: >/= 8 hours ASA classification: III Emergent: no Anesthetic plan: proceed Anesthesia type and monitoring: general GIVS and standard monitoring Results Review: All pre-operative results and documents have been reviewed as part of the pre- operative evaluation. Informed Consent: The patient's anesthetic plan and its attendant risks and benefits were discussed with the patient/family/POA. Questions were solicited and answers provided to the satisfaction of the patient/family/POA.
--- NOTE | 2023-03-30 08:58 | WPDHPUPDATE1 ---
History and Physical Update Update Date/Time: 03/30/23 08:58 History and Physical has been reviewed, including an updated exam of the patient. There are NO changes in the patient's condition. Risks, benefits, and alternatives have been discussed and questions answered. Patient agrees to proceed with procedure.
[2023-03-30] MEDS: BUPIVACAINE/EPINEPHRINE 0.5% 50 ML VIAL 10 ML INFILTRATE (09:16)
--- NOTE | 2023-03-30 09:21 | P.OP_ITS ---
Procedure Note - Detailed Date of Procedure 03/30/23 Pre-op Diagnosis Diffuse Large B-cell Lymphoma Post-op Diagnosis Same Procedure Performed removal L chest VAD Surgeon Lisa Hinton MD Anesthesia MAC and Local Indications 72 y/o M s/p treatment for lymphoma. Pt had L sided VAD placed 11/08. Findings L subclavian VAD Description of Procedure The patient was taken to the operating room and placed in the supine position. The patient was then prepped and draped in the normal sterile fashion. A time- out was then done to verify the patient's identity, as well as the procedure being performed. I began by localizing the area of the previously placed port in the left chest. After the area was adequately anesthetized, I made an incision through the previous incision to gain access to the port in the sub cutaneous tissue. I was then able to identify the port and using dissection with the Bovie cautery, I was able to free the reservoir from the subcutaneous pocket. The reservoir was being held in by 2 sutures and these were subsequently cut. I was then able to remove the reservoir from the pocket. I then removed the catheter from the left subclavian vein in full. I then held pressure at the level the left subclavian vein for approximately 5 minutes. Hemostasis was noted and I irrigated the pocket. I then closed the subcutaneous tissue with 3-0 Vicryl suture. The skin was closed with 4-0 Monocryl subcuticular suture. Dermabond was placed on the wound. The patient tolerated the procedure well and was alert and awake in the operating room postoperative. The patient will be sent to the recovery room in stable condition. Estimated Blood Loss 5 Drains No Packing No Pathology None sent Complications No immediate complications Condition Stable Disposition PACU [facility] Billing Surgery - Charge Forward: Surgery Billing
[2023-03-30 09:27] VITALS: BP 101/78; PULSE 66; RESP 14; O2SAT 100
[2023-03-30 09:55] VITALS: BP 120/75; PULSE 55; RESP 14
[2023-03-30 10:25] VITALS: BP 135/64; PULSE 52; RESP 14
== END 2023-03-30 10:34 | disposition home or self-care (01) ==
PROVIDERS: PCP Family Medicine Adolescent Medicine; Visit Provider Surgery
PROC: (CPT 36589; principal; 2023-03-30 09:30)
DX: Z45.2 Encounter for adjustment and management of vascular access device (principal); Z85.72 Personal history of non-Hodgkin lymphomas; I70.0 Atherosclerosis of aorta; N40.0 Benign prostatic hyperplasia without lower urinary tract symptoms
CPT/HCPCS: 36590; J2704; J7120

== ENCOUNTER 2023-07-14 08:52 | Outpatient (CLI) | payer MEDICARE, SELFPAY ==
[2023-07-14 09:14] LABS: Basophils Percent Auto 0.5 % (0.2-1.2); Eosinophils Absolute Auto 0.1 K/mm3 (0-0.3); Eosinophils Percent Auto 1.6 % (0-4.4); Hematocrit 38.3 % (42.0-52.0); Immature Granulocyte Absolute 0.01 K/mm3 (0.00-0.031); Immature Granulocyte Percent A 0.2 % (0-0.5); Lymphocytes Absolute Auto 1.08 K/mm3 (0.9-3.2); Lymphocytes Percent Auto 24.9 % (18.3-44.2); Mean Corpuscular HGB Conc 33.9 g/dl (32-36); Mean Corpuscular Volume 88.2 fl (80-100); Mean Platelet Volume 9.7 fl (7.4-10.4); Monocytes Absolute Auto 0.5 K/mm3 (0.1-0.6); Monocytes Percent Auto 12.2 % (2.6-8.5); Neutrophils Absolute Auto 2.6 K/mm3 (1.3-6.7); Neutrophils Percent Auto 60.6 % (45.5-73.1); Platelet Count Result 224 k/mm3 (150-375); Red Blood Count 4.34 M/mm3 (4.6-6.20); Red Cell Distribution Width 13.3 % (11.5-14.5); White Blood Count 4.3 K/mm3 (4.5-10.0)
[2023-07-14 11:29] LABS: Alanine Aminotransferase 21 U/L (6-50); Albumin Level 4.2 g/dL (3.5-5.1); Alkaline Phosphatase 71 U/L (38-126); Anion Gap 6 mmol/L (8-16); Aspartate Amino Transferase 30 U/L (17-59); Bilirubin,Total 0.7 mg/dL (0.2-1.3); Blood Urea Nitrogen 19 mg/dL (9-20); Calcium 9.4 mg/dL (8.4-10.2); Carbon Dioxide 26 mmol/L (22-30); Chloride 106 mmol/L (98-107); Estimated Glomerular Filt Rate > 60; Glucose 94 mg/dL (65-110); Lactate Dehydrogenase 168 U/L (120-246); Sodium 138 mmol/L (137-145)
[2023-07-14 12:34] LABS: Folic Acid 13.6 ng/mL (2.76->20)
[2023-07-18 07:09] LABS: Testosterone Total 855 ng/dL (250-1100)
== END 2023-07-14 08:53 | disposition home or self-care (01) ==
PROVIDERS: PCP Family Medicine Adolescent Medicine; Visit Provider Internal Medicine Hematology & Oncology
DX: R53.83 Other fatigue (principal); D64.9 Anemia, unspecified
CPT/HCPCS: 36415; 80053; 82607; 82746; 83615; 84403; 84443; 85025

== ENCOUNTER 2024-03-07 08:18 | Outpatient (CLI) | payer MEDICARE, SELFPAY ==
[2024-03-07 08:32] LABS: Basophils Percent Auto 0.8 % (0.2-1.2); Eosinophils Absolute Auto 0.1 K/mm3 (0-0.3); Eosinophils Percent Auto 1.3 % (0-4.4); Hematocrit 39.4 % (42.0-52.0); Immature Granulocyte Absolute 0.02 K/mm3 (0.00-0.031); Immature Granulocyte Percent A 0.4 % (0-0.5); Lymphocytes Absolute Auto 1.02 K/mm3 (0.9-3.2); Lymphocytes Percent Auto 19.3 % (18.3-44.2); Mean Corpuscular Hemoglobin 29.7 pg (26-34); Mean Platelet Volume 9.7 fl (7.4-10.4); Monocytes Absolute Auto 0.6 K/mm3 (0.1-0.6); Monocytes Percent Auto 11.9 % (2.6-8.5); Neutrophils Absolute Auto 3.5 K/mm3 (1.3-6.7); Neutrophils Percent Auto 66.3 % (45.5-73.1); Platelet Count Result 230 k/mm3 (150-375); Red Blood Count 4.38 M/mm3 (4.6-6.20); Red Cell Distribution Width 12.8 % (11.5-14.5); White Blood Count 5.3 K/mm3 (4.5-10.0)
[2024-03-07 08:45] LABS: Blood Urea Nitrogen 22 mg/dL (8-26); Carbon Dioxide 24 mmol/L (22-30); Chloride 107 mmol/L (98-109); Estimated Glomerular Filt Rate > 60; Glucose 97 mg/dL (70-105); Ionized Calcium (POC) 1.27 mmol/L (1.11-1.31); Potassium 4.3 mmol/L (3.5-4.9); Sodium 143 mmol/L (138-146)
[2024-03-07 10:10] LABS: Alanine Aminotransferase 16 U/L (6-50); Albumin Level 4.4 g/dL (3.5-5.1); Alkaline Phosphatase 73 U/L (38-126); Anion Gap 7 mmol/L (4-12); Aspartate Amino Transferase 26 U/L (17-59); Bilirubin,Total 0.7 mg/dL (0.2-1.3); Blood Urea Nitrogen 23 mg/dL (9-20); Calcium 9.8 mg/dL (8.4-10.2); Carbon Dioxide 25 mmol/L (22-30); Chloride 110 mmol/L (98-107); Estimated Glomerular Filt Rate > 60; Glucose 104 mg/dL (65-110); Potassium 4.3 mmol/L (3.4-5.0); Sodium 142 mmol/L (137-145)
== END 2024-03-07 08:19 | disposition home or self-care (01) ==
LOC: ANHLAB 08:19
PROVIDERS: PCP Family Medicine Adolescent Medicine; Visit Provider Internal Medicine Hematology & Oncology
DX: C83.30 Diffuse large B-cell lymphoma, unspecified site (principal)
CPT/HCPCS: 36415; 80047; 80053; 85025

== ENCOUNTER 2024-05-03 08:23 | Outpatient (CLI) | payer MEDICARE, SELFPAY ==
--- NOTE | 2024-05-03 08:36 | ECHO_ITS ---
Patient Info Name: Charles Rodriguez Age: 73 years : 1950 Gender: Male Ht: 72 in Wt: 170 lbs BSA: 1.98 m2 HR: 61 bpm BP: 116 / 74 mmHg Technical Quality: Fair Exam Date: 05/03/2024 8:47 AM Exam Location: Echo Lab Patient Status: Outpatient Admit Date: 05/03/2024 Staff Ordering Physician: Luca Hanna MD Nozzle Operator: George Burrows RDCS Attending Provider: Luca Hanna MD Referring Physician: Cyndi HANNA; Exam Type: CA echo doppler color flow Study Info Indications R06.09 - Other forms of dyspnea R53.83 - Other fatigue R01.2 - Other cardiac sounds Complete two-dimensional, color flow and Doppler transthoracic echocardiogram is performed. Summary 1. Complete two-dimensional, color flow and Doppler transthoracic echocardiogram is performed. 2. Left ventricular chamber dimension is normal. 3. Left ventricular systolic function is normal, estimated at 55-60%. 4. The left ventricular diastolic function is normal. 5. E/e' 8 is minimally elevated. 6. Right atrial chamber dimension is mildly enlarged. 7. There is mild aortic valve sclerosis. 8. There is trace aortic valve regurgitation. 9. The mitral valve has mildly calcified posterior leaflet and mildly calcified annulus. 10. 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 11. There is mild mitral valve regurgitation. 12. There is mild to moderate tricuspid valve regurgitation. 13. No pulmonary hypertension, estimated pulmonary arterial systolic pressure is 21 mmHg. 14. There is trace pulmonic regurgitation. Left Ventricle E/e' 8 is minimally elevated. Left ventricular chamber dimension is normal. Left ventricular systolic function is normal, estimated at 55-60%. The left ventricular diastolic function is normal. Right Ventricle Right ventricular systolic function is normal and with normal TAPSE 2.0 cm. Right ventricular chamber dimension is normal. Left Atria Left atrial chamber dimension is normal. Right Atria Right atrial chamber dimension is mildly enlarged. Aortic Valve The aortic valve is trileaflet. There is mild aortic valve sclerosis. There is no aortic valve stenosis. There is trace aortic valve regurgitation. Pulmonic Valve There is trace pulmonic regurgitation. Mitral Valve The mitral valve has mildly calcified posterior leaflet and mildly calcified annulus. 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 There is no mitral valve stenosis. There is mild mitral valve regurgitation. Tricuspid Valve There is mild to moderate tricuspid valve regurgitation. No pulmonary hypertension, estimated pulmonary arterial systolic pressure is 21 mmHg. Pericardium/Pleural There is no pericardial effusion. Inferior Vena Cava Normal inferior vena cava with >50% collapse upon inspiration consistent with normal right atrial pressure, 5 mmHg. Aorta The aortic root size at the sinus of Valsalva is normal. Left Ventricular Outflow Tract Name Value Normal LVOT 2D LVOT Diameter 2.1 cm LVOT Doppler LVOT Peak Gradient 3 mmHg LVOT Mean Gradient 1 mmHg LVOT VTI 16 cm LVOT
== END 2024-05-03 08:24 | disposition home or self-care (01) ==
PROVIDERS: PCP Family Medicine Adolescent Medicine; Visit Provider Family Medicine Adolescent Medicine
DX: R06.09 Other forms of dyspnea (principal); R01.2 Other cardiac sounds; R53.83 Other fatigue; I35.8 Other nonrheumatic aortic valve disorders; I34.81 Nonrheumatic mitral (valve) annulus calcification; I34.1 Nonrheumatic mitral (valve) prolapse; I34.0 Nonrheumatic mitral (valve) insufficiency; I36.1 Nonrheumatic tricuspid (valve) insufficiency
CPT/HCPCS: 93306

== ENCOUNTER 2024-08-23 07:02 | Outpatient (CLI) | payer MEDICARE, SELFPAY ==
--- NOTE | ~2024-08-23 | CT_ITS ---
Clinical Indication: Lymphoma CT Scan of the Chest, Abdomen, and Pelvis with Contrast: Technique: Contiguous sections were acquired throughout the chest, abdomen, and pelvis after intraven ous administration of 100 cc of Omnipaque 350. Dose reduction technique was used on this scan by david tucker automated exposure control and iterative reconstruction technique. The dose-length product (DL P) was 455.17 mGy-cm. Comparison: 01/31/2023 Findings: There is no evidence of any significant mediastinal, hilar or axillary lymphadenopathy. The mediastin al soft tissues appear normal. There is no evidence of pleural or pericardial effusion. The lungs are clear. No pulmonary nodules or infiltrates are noted. Stable left hepatic lobe cysts. The spleen, pancreas, gallbladder, adrenals and kidneys are within no rmal limits. There are atherosclerotic calcifications of the aorta. No lymphadenopathy. No bowel obstruction or bowel wall thickening. Moderate to large hiatal hernia noted. Urinary bladder is unremarkable. Prostate gland is enlarged. Mild T12 compression deformity present, unchanged. Impression: No change from prior exam. No evidence of active malignancy or metastatic disease. No pathologic lymp hadenopathy seen. Stable moderate to large hiatal hernia. Reviewed, dictated and finalized at [facility]. Impression: No change from prior exam. No evidence of active malignancy or metastatic disea se. No pathologic lymphadenopathy seen. Stable moderate to large hiatal hernia.
[2024-08-23 07:33] LABS: Estimated Glomerular Filt Rate 59
== END 2024-08-23 07:03 | disposition home or self-care (01) ==
PROVIDERS: PCP Family Medicine Adolescent Medicine; Visit Provider Internal Medicine Hematology & Oncology
DX: C83.30 Diffuse large B-cell lymphoma, unspecified site (principal); K44.9 Diaphragmatic hernia without obstruction or gangrene
CPT/HCPCS: 71260; 74177; Q9967

== ENCOUNTER 2024-09-03 13:31 | Outpatient (CLI) | payer MEDICARE, SELFPAY ==
[2024-09-03 13:43] LABS: Basophils Percent Auto 0.7 % (0.2-1.2); Eosinophils Absolute Auto 0.1 K/mm3 (0-0.3); Eosinophils Percent Auto 1.8 % (0-4.4); Hematocrit 37.3 % (42.0-52.0); Hemoglobin 12.3 g/dL (14.0-18.0); Immature Granulocyte Absolute 0.01 K/mm3 (0.00-0.031); Immature Granulocyte Percent A 0.2 % (0-0.5); Lymphocytes Absolute Auto 1.31 K/mm3 (0.9-3.2); Lymphocytes Percent Auto 24.1 % (18.3-44.2); Mean Corpuscular Hemoglobin 29.9 pg (26-34); Mean Corpuscular Volume 90.8 fl (80-100); Mean Platelet Volume 9.7 fl (7.4-10.4); Monocytes Absolute Auto 0.6 K/mm3 (0.1-0.6); Monocytes Percent Auto 10.7 % (2.6-8.5); Neutrophils Absolute Auto 3.4 K/mm3 (1.3-6.7); Neutrophils Percent Auto 62.5 % (45.5-73.1); Platelet Count Result 214 k/mm3 (150-375); Red Blood Count 4.11 M/mm3 (4.6-6.20); Red Cell Distribution Width 12.9 % (11.5-14.5); White Blood Count 5.4 K/mm3 (4.5-10.0)
[2024-09-03 16:59] LABS: Alanine Aminotransferase 16 U/L (6-50); Albumin Level 4.1 g/dL (3.5-5.1); Alkaline Phosphatase 62 U/L (38-126); Anion Gap 6 mmol/L (4-12); Aspartate Amino Transferase 27 U/L (17-59); Bilirubin,Total 0.7 mg/dL (0.2-1.3); Blood Urea Nitrogen 22 mg/dL (9-20); Calcium 9.8 mg/dL (8.4-10.2); Carbon Dioxide 27 mmol/L (22-30); Chloride 107 mmol/L (98-107); Estimated Glomerular Filt Rate > 60; Glucose 93 mg/dL (65-110); Lactate Dehydrogenase 154 U/L (120-246); Potassium 4.1 mmol/L (3.4-5.0); Sodium 140 mmol/L (137-145)
== END 2024-09-03 13:32 | disposition home or self-care (01) ==
LOC: ANHLAB 13:33
PROVIDERS: PCP Family Medicine Adolescent Medicine; Visit Provider Internal Medicine Hematology & Oncology
DX: C83.30 Diffuse large B-cell lymphoma, unspecified site (principal)
CPT/HCPCS: 36415; 80053; 83615; 85025

== ENCOUNTER 2025-02-07 08:05 | Emergency (ER) | payer MEDICARE, SELFPAY ==
[2025-02-07 08:14] VITALS: BP 136/77; PULSE 75; RESP 16; TEMP 36.1; O2SAT 100
--- NOTE | 2025-02-07 08:29 | ED.URI ---
HPI - URI/Sore Throat General Chief Complaint: Upper Respiratory Infection Stated Complaint: Sore Throat Time Seen by Provider: 02/07/25 08:23 Source: patient and RN notes reviewed Mode of arrival: ambulatory Limitations: no limitations History of Present Illness HPI Narrative: Patient presents today with sore throat since last night. Denies any additional symptoms to include cough, congestion, rhinorrhea, fever. Denies any known sick contacts. Pain increases with swallowing. He has tried some throat lozenges with mild relief. Related Data Home Medications ?Medication ?Instructions ?Recorded ?Confirmed ?Last Taken ?Type ferrous sulfate 325 mg (65 mg 325 mg PO QMWF 11/17/20 02/07/25 03/24/23 History iron) tablet ascorbic acid (vitamin C) 250 mg 250 mg PO QMWF 02/10/21 02/07/25 03/24/23 History tablet (Vitamin C) mecobalamin (vitamin B12) 2,500 2,500 mcg PO DAILY 03/09/23 02/07/25 03/24/23 History mcg chewable tablet Allergies Allergy/AdvReac Type Severity Reaction Status Date / Time No Known Allergies Allergy Verified 02/07/25 08:11 Review of Systems Review of Systems: CONSTITUTIONAL: Denies body aches, fever, chills, or sweats. EYES: Denies visual changes, redness, or discharge. ENT: Denies rhinorrhea, congestion,or otalgia.+ Sore throat CARDIOVASCULAR: Denies chest pain, palpitations, or edema. RESPIRATORY: Denies cough or dyspnea. GASTROINTESTINAL: Denies abdominal pain, nausea, vomiting, or diarrhea. GENITOURINARY: Denies dysuria or hematuria. SKIN: Denies rash, itching, or wounds. MUSCULOSKELETAL: Denies back pain, joint pain, or myalgia. NEUROLOGIC: Denies headache, numbness, tingling, or weakness. PSYCH: Denies depression or anxiety. [facility] Past Medical History Medical History Colon cancer screening Aortic atherosclerosis (09/2016) Large B-cell lymphoma Small bowel BPH (benign prostatic hyperplasia) Hydroureter, right History of kidney stones Surgical History Surgical History History of resection of small bowel (09/2020) History of exploratory laparotomy 10/19/20 exploratory laparotomy, lysis of adhesions including mobilization of the right colon, small bowel resection H/O bilateral inguinal hernia repair Right 2007 History of tonsillectomy Family History Family History Father Family history of diabetes mellitus in first degree relative Family history of congestive heart failure Hypertension Mother Family history of malignant neoplasm of kidney Social History Social History Smoking status: Never smoker Alcohol intake: current Drinks per week: 1 Alcohol use details: rarely Substance use: never Substance use type: does not use Lack of Transportation: No Lack of Food: Never True Current Housing: I Have Housing Concerned About Future Housing: No Difficulty Paying Gas/Electric Bills: No Difficulty Paying for Meds: No Currently Unemployed: No Education: Bachelor's Degree Difficulty w/ Childcare or Family Care: No Living arrangements: with family Occupation/Education: retired Gender identity (if verbalized by the patient): Male Spiritual care concerns: No Comments At time of signature, I have reviewed and agree with nursing past medical, surgical, social and family history unless otherwise noted. Please see nursing chart for further information. There is no relevant family history pertinent to the presenting complaint Exam Narrative: GENERAL: Well-appearing, well-nourished, and in no acute distress. HEAD: Normocephalic, atraumatic. EYES: EOMI. No redness or drainage. Conjunctivae normal. ENT: Mucous membranes pink and moist. Nares clear. No rhinorrhea. TMs normal bilaterally. mildly erythematous pharynx without edema or exudate. Uvula midline. NECK: Normal AROM. Supple. No lymphadenopathy. CHEST: No respiratory distress. Clear to auscultation. HEART: Regular rate and rhythm. No murmur appreciated. EXTREMITIES: Normal range of motion. No edema. SKIN: Warm, dry, no rash. Capillary refill normal. Normal skin turgor. NEURO: No focal deficits. Alert and oriented x3. Gait steady. PSYCH: Normal affect. No signs of depression or anxiety. Course Course Level of Care: Express Care Visit Vital Signs Vital signs: Vital Signs Temperature 96.9 F L 02/07/25 08:14 Pulse Rate 75 02/07/25 08:14 Respiratory Rate 16 02/07/25 08:14 Blood Pressure 136/77 02/07/25 08:14 Pulse Oximetry 100 02/07/25 08:14 Temperature 96.9 F L 02/07/25 08:14 Pulse Rate 75 02/07/25 08:14 Respiratory Rate 16 02/07/25 08:14 Blood Pressure 136/77 02/07/25 08:14 Pulse Oximetry 100 02/07/25 08:14 reviewed MDM - URI/Sore Throat MDM Narrative Medical decision making narrative: rapid strep negative. Culture pending. Symptoms likely viral in etiology. Discussed [id number] medication use and duration of illness. No prescription medications indicated at this time. Anticipatory guidance given. Differential Diagnosis Differential diagnosis: Likely upper respiratory infection, viral infection, pharyngitis and other ( strep throat) Lab Data Attestation: I reviewed the patient's lab results. Lab results narrative: rapid strep negative Critical Care Time Critical Care Time Critical Care Time: No Discharge Plan Discharge Clinical Impression: Pharyngitis Qualifiers: Pharyngitis/tonsillitis etiology: unspecified etiology Qualified Code(s): J02.9 - Acute pharyngitis, unspecified Patient Disposition: Home, Self-Care Condition: Stable Instructions: Pharyngitis (ED) Additional Instructions: Your rapid strep swab was negative today at [facility]. You will be notified in a few days if the culture comes back positive for strep, and appropriate antibiotics will be called in for you at that time. Your symptoms are likely due to a viral illness, which is not treated with antibiotics. Viral symptoms can be present for up to 7-10 days. Take Tylenol or Ibuprofen for fever or pain. Rest and stay hydrated. Follow up with your PCP in 7-10 days if symptoms are not improving. Go to the ER immediately if you any difficulty breathing or swallowing. Your blood pressure was elevated above 120/80 today at Urgent Care. This puts you above the threshold for follow up. Please schedule a followup visit with your personal physician as soon as possible, for further evaluation and treatment. Even blood pressure exceeding 120/80 may indicate pre-hypertension. Patient Language: Tajik Prescriptions: No Action ferrous sulfate 325 mg (65 mg iron) Tablet 325 mg PO QMWF ascorbic acid (vitamin C) [Vitamin C] 250 mg Tablet 250 mg PO QMWF mecobalamin (vitamin B12) 2,500 mcg Tablet,Chewable 2,500 mcg PO DAILY Follow-up/Referrals: Luca Hanna MD [Primary Care Provider] - Time of Disposition: 08:35
[2025-02-07 08:30] LABS: EDSTREPNEGPOS1 Negative (Negative)
== END 2025-02-07 08:40 | disposition home or self-care (01) ==
PROVIDERS: Emergency Provider Nurse Practitioner; PCP Family Medicine Adolescent Medicine
DX: J02.9 Acute pharyngitis, unspecified (principal); I70.0 Atherosclerosis of aorta; N40.0 Benign prostatic hyperplasia without lower urinary tract symptoms; Z85.72 Personal history of non-Hodgkin lymphomas; Z90.49 Acquired absence of other specified parts of digestive tract
CPT/HCPCS: 87081; 87880; 99213; G0463

== ENCOUNTER 2025-04-10 10:30 | Outpatient (CLI) | payer MEDICARE, SELFPAY ==
--- OUTSIDE RECORDS SUMMARY | 2025-04-10 10:33 | XMS_ITS | Encounter Summary ---
Author Organization [facility] Address [address] [place] [address] Care Team Providers Care Acid Cleaner Name Role Phone Luca Hanna MD Primary Care Provider + Encounter Details Date Type Department Care Team (Late st Contact Info) Description 10/20/2020 Lab Requisition [facility] [address] [place] [address] Brayan Mary MD [address] [place] [id number] Illness, unspecified Social History Tobacco Use Types Packs/Day Years Used Date Smoking Tobacco: Never Assessed Sex and Gender Information Value Date Recorded Sex Assigned at Not on file Legal Sex Male 12:36 PM FOREIGN EXCHANGE DEALER Gender Identity Not on file Sexual Orientation Not on file documented as of this encounter Plan of Treatment Not on file documented as of this encounter Procedures Procedure Name Priority Date/Time Associated Diagnosis Comments PATHOLOGY TISSUE Routine 10/19/2020 11:3 6 AM FOREIGN EXCHANGE DEALER Illness, unspecified documented in this encounter Results * PATHOLOGY TISSUE (10/19/2020 11:36 AM FOREIGN EXCHANGE DEALER) Case Report Surgical Pathology Report Case: [id number] Authorizing Provider: Brayan Mary MD Collected: 10/19/2020 11:36 AM Ordering Location: [facility] Received: 10/20/2020 03:46 PM Pathologist: Aby Cleaning MD Specimen: Colon Biopsy 10/21/2020 4:48 PM FOREIGN EXCHANGE DEALER [facility] Final Diagnosis Small intestine, excision (A): - Diffuse large B-cell lymphoma, germinal center type - See description 10/21/2020 4:48 PM FOREIGN EXCHANGE DEALER [facility] at [address] [employer] EXCHANGE DEALER Microscopic Description and Comment Received from [facility] are 11 H&E-stained glass slides, 2 smears, and 11 formalin fixed paraffin embedded blocks. Review of the slides shows a mass comprising discohesive sheets of large lymphoid cells with vesicular chromatin which invades all layers of the intestinal wall and the mesentery. It involves some but not all of the lymph nodes. There is focal necrosis. A panel of immunohistochemical stains is applied to better characterize the cells (block A4, with appropriately staining controls) and the results are as follows: CD138: negative Cyclin D1: negative in the cells of interest, positive in background endothelial cells c-myc: not overexpressed (fewer than 40% of lesional cells) MUM-1: positive BCL-2: not overexpressed (fewer than 30% of lesional cells) BCL-6: positive CD10: positive CD5: negative in lesional cells, positive in background T-lymphocytes CD20: positive CD3: negative in lesional cells, positive in background T-lymphocytes CD30: negative Lambda and kappa IHC: no obvious restriction Flow cytometry performed at [facility] reportedly showed a clonal kappa light chain restricted CD10+ B-cell population (specimen ID [id number]) The results are most consistent with diffuse large B-cell lymphoma, germinal center type. The results of FISH for BCL2 and C-MYC rearrangements will be reported as an addendum. 10/21/2020 4:48 PM [facility] Clinical History The patient is a 69-year-old male who during workup for back pain was found to have a small bowel mass on CT scan and underwent excisional biopsy. 10/21/2020 4:48 PM [facility] Materials Received Received are 11 blocks (A1-A11) and 13 slide(s) labeled [id number] along with a copy of the outside pathology report. The materials originate from [facility], [address] [place] [address]. All original materials are returned to the referring institution, along with a copy of our final report. 10/21/2020 4:48 PM [facility] Disclaimer The performance characteristics of all immunohistochemical and indirect immunofluorescence stains (if any) cited in this report were determined by the Histopathology Laboratory of [facility]. Some of these tests were developed by our own laboratory and have not been cleared or approved by the US Food and Drug Administration. The FDA does not require this test to go through premarket FDA review. These tests are used for clinical purposes. They should not be regarded as investigational or for research. This laboratory is certified under the Clinical Laboratory Improvement Amendments (CLIA) as qualified to perform high complexity clinical laboratory testing. This case has been personally reviewed and interpreted by the attending (teaching) pathologist. 10/21/2020 4:48 PM FOREIGN EXCHANGE DEALER [facility] Embedded Images 10/21/2020 4:48 PM FOREIGN EXCHANGE DEALER [facility] Pathology/Cytolo gy COLONIC BIOPSY SPECIMEN / Unknown 10/19/2020 11:36 AM FOREIGN EXCHANGE DEALER 10/20/2020 3:46 PM FOREIGN EXCHANGE DEALER Brayan Mary MD LAB - PATHOLOGY/CYTOLOGY ORDER COOPER Final Result [facility] [address] [phone] documented in this encounter Visit Diagnoses Diagnosis Illness, unspecified documented in this encounter Care Teams Acid Cleaner Relationship Specialty Start Date End Date Luca Hanna MD [address] [address] PCP - General 10/20/20 documented as of this encounter
--- OUTSIDE RECORDS SUMMARY | 2025-04-10 10:33 | XMS_ITS | Clinical Summary ---
Author Organization [facility] Address [address] [place] [address] Care Team Providers Care Wet Process Technician Name Role Phone Luca Hanna MD Primary Care Provider [phone]- [phone] Allergies No known active allergies Medications ferrous sulfate 325 mg (65 mg iron) tablet Take 325 mg by mouth 3 times daily with meals. Active ascorbic acid (VITAMIN C) 250 mg Tablet, Chewable Take by mouth. Active cyanocobalamin (VITAMIN B-12) 250 mcg Tablet Take 250 mcg by mouth daily. Active magnesium citrate solution Take 296 mL by mouth one time only. Active Active Problems Problem Noted Date Diagnosed Date Chronic anemia 03/17/2022 Diffuse large B-cell lymphoma 10/26/2020 Family History Medical History Relation Name Comments Thyroid Cancer Brother 1 Healthy Brother 2 Healthy Daughter Cancer Father Kidney Cancer Mother Relation Name Status Comments Brother 1 Alive Brother 2 Alive Daughter Alive Father Mother Social History Tobacco Use Types Packs/Day Years Used Date Smoking Tobacco: Never Tobacco Cessation:Counseling Given: Not Answered Alcohol Use Standard Drinks/Week Comments Not Currently 0 (1 standard drink = 0.6 oz pur e alcohol) Sex and Gender Information Value Date Recorded Sex Assigned at Not on file Legal Sex Male 11:[address] RE[address] Gender Identity Not on file Sexual Orientation Not on file Last Filed Vital Signs Vital Sign Reading Time Taken Comments Blood Pressure 121/73 09/04/2024 1:17 PM CDT Pulse 74 09/04/2024 1:17 PM CDT Temperature 36.6 C (97.8 F) 09/04/2024 1:17 PM CDT Respiratory Rate 18 09/04/2024 1:17 PM CDT Oxygen Saturation 98% 09/04/2024 1:17 PM CDT Inhaled Oxygen Concentration - - Weight 73.9 kg (163 lb) 09/04/2024 1:17 PM CDT Height 190.5 cm (6' 3 ) 07/29/2022 10:09 AM CDT Body Mass Index 20.37 07/29/2022 10:09 AM CDT Plan of Treatment Upcoming Encounters Date Type Department Care Team (Late st Contact Info) Description 04/17/2025 2:30 PM CDT Office Visit [facility] - [place] [address] [facility] [address] [place] [address] Oswaldo Garland MD [address] [facility] [address] [place] [address] Health Maintenance Due Date Last Done Comments DTAP/TDAP/TD VACCINES (1 - Tdap) 1969 PNEUMOCOCCAL VACCINE 50+ YEARS (1 of 2 - PCV) 10/04/19 68 ZOSTER VACCINE (1 of 2) 1968 FIT-DNA Q 3 years 1994 FIT/FOBT Q 1 year 1994 Flex Sig/CT Colonography Q 5 years 1994 INFLUENZA VACCINE (#1) 2024 RSV VACCINE (60+ or ) (1 - 1-dose 75+ series) 2024 Medicare Advantage (CT) Prev entative Visit/Annual Wellness Visit 11/20/2024 COLORECTAL SCREENING 09/19/2026 09/19/2016 Colorectal Cancer Screening 09/19/2026 Insurance [employer] PPO [facility] Care Teams Wet Process Technician Relationship Specialty Start Date End Date Luca Hanna MD PCP - General Family Practice 10/23/20
--- OUTSIDE RECORDS SUMMARY | 2025-04-10 10:33 | XMS_ITS | Clinical Summary ---
Author Organization [facility] Address [address], [address] [phone] Phone Care Team Providers Care Correctional Case Records Supervisor Name Role Phone Luca Hanna MD Primary Care Provider + Allergies No known active allergies Medications polyethylene glycol (MIRALAX) Powder Mix the entire bottle with 64 oz of a clear liquid. Use as directed by the office for colonoscopy prep. 255 g 0 6 Active [place]-3 Fatty Acids (FISH OIL) 1200 MG Capsule Take 1,200 mg by mouth Every other day. Active Krill Oil 300 MG Capsule Take 1 Cap by mouth Every other day. Active Multiple Vitamins-Mineral s (SENIOR MULTIVITAMIN PLUS PO) Take 0.5 Tabs by mouth daily. Active Cholecalciferol (VITAMIN D-3) 400 UNIT Tablet Take 1 Tab by mouth daily. Active Multiple Minerals (CALCIUM/MAGNESI UM/ZINC PO) Take 0.5 Tabs by mouth daily. Active [place], Serenoa repens, 450 MG Capsule Take 1 Cap by mouth daily. Active [place] 650 MG Tablet Take 1 Tab by mouth daily. Active CRANBERRY PO Take 4,200 mg by mouth daily. Active PSYLLIUM HUSK POIndications:2 teaspoons Take by mouth daily. Indications: 2 teaspoons Active Family History Medical History Relation Name Comments Diabetes Father Heart Disease Father Kidney Cancer Mother Relation Name Status Comments Father Mother Social History Tobacco Use Types Packs/Day Years Used Date Smoking Tobacco: Never Smokeless Tobacco: Never Alcohol Use Standard Drinks/Week Comments Yes 2 (1 standard drink = 0.6 oz pur e alcohol) Sex and Gender Information Value Date Recorded Sex Assigned at Not on file Legal Sex Male 9:42 PM CDT Gender Identity Not on file Sexual Orientation Not on file Plan of Treatment Health Maintenance Due Date Last Done Comments Hepatitis C Virus (HCV) Screening 1950 TdaP Immunization 1949 Cologuard 1999 Immunochemical Fecal Occult Blood 1999 Pneumococcal Immunization (5 0+ years) (1 of 1 - PCV) 1999 Zoster Immunization (1 of 2) 1999 Influenza Immunization (#1) 2024 SARS-COV-2 Immunization (1 - season) 2024 Respiratory Syncytial Virus (RSV) Immunization (Adult) (1 - 1-dose 75+ series) 2024 Colonoscopy 09/19/2026 09/19/2016 Colorectal Cancer Screening 09/19/2026 09/19/2016 Hepatitis B Immunization Aged Out No longer eligible based on patient's age to complete this topic Meningococcal Immunization (ACWY) Aged Out No longer eligible based on patient's age to complete this topic Rotavirus Immunization Aged Out No lo nger eligible based on patient's age to complete this topic Procedures Procedure Name Priority Date/Time Associated Diagnosis Comments COLONOSCOPY Routine 09/19/2016 from Last 3 Months or Most Recently Relevant to Health Maintenance Results * COLONOSCOPY (09/19/2016) Mtahieu Castro DO PROCEDURE/MINOR SURGICAL ORDERA BLES Final Result from Last 3 Months or Most Recently Relevant to Health Maintenance Care Teams Correctional Case Records Supervisor Relationship Specialty Start Date End Date Luca Hanna MD [address] [place] [address] PCP - General Family Medicine 09/21/16
--- OUTSIDE RECORDS SUMMARY | 2025-04-10 10:33 | XMS_ITS | Clinical Summary ---
Author Organization [facility] Address [address] [place] [address] Care Team Providers Care Supervisor Packing Name Role Phone Luca Hanna MD Primary Care Provider + Source Comments [facility],non-owned Affiliates and Associated Physician Practices is amultiple site organization consisting of ambulatory clinics and hospital sitesin [place], [place], [place] and [place]. This disclosure is being madepursuant to the Care Everywhere program and may not contain all information available regarding this patient. 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 Gender Identity Not on file Sexual Orientation Not on file Plan of Treatment Health Maintenance Due Date Last Done Comments COLOGUARD (AGES 45-75) - COL ON CA SCREENING 1949 COLON MONITORING 1949 COLONOSCOPY - COLON CA SCREENING 1949 CT COLONOGRAPHY - COLON CA SCREENING 1950 Colorectal Cancer Screening 1949 FIT - COLON CA SCREENING 1949 FLEX SIG - COLON CA SCREENING 1949 LIPID TESTING 1949 HEPATITIS C SCREENING 09/30/1967 DTAP/TDAP/TD VACCINES (1 - Tdap) 1968 PNEUMOCOCCAL VACCINE 50+ (1 of 1 - PCV) 1999 ZOSTER VACCINE (1 of 2) 1999 COVID-19 VACCINE ( - 2023-2 5 season) 2024 Respiratory Syncytial Virus (RSV) Vaccine Pt: or over 60 yrs (1 - 1-dose 75+ series) 2024 DEPRESSION SCREENING 11/20/2024 INFLUENZA VACCINE (Season Ended) 2025 HEPATITIS B VACCINE Aged Out No longe r eligible based on patient's age to complete this topic HIB VACCINE Aged Out No longer eligi ble based on patient's age to complete this topic HPV VACCINE Aged Out No longer eligi ble based on patient's age to complete this topic MENINGOCOCCAL (Group B) VACC INE SHARED DECISION-MAKING Aged Out No longer eligibl e based on patient's age to complete this topic MENINGOCOCCAL GROUPS A/C/Y/W VACCINE Aged Out No longer eligible b ased on patient's age to complete this topic Insurance [id number] MANA[facility] MEDICARE ADV Care Teams Supervisor Packing Relationship Specialty Start Date End Date Luca Hanna MD [address] [address] PCP - General 10/20/20
--- OUTSIDE RECORDS SUMMARY | 2025-04-10 10:33 | XMS_ITS | Encounter Summary ---
Author Organization [facility] Address [address] [place] [address] Care Team Providers Care Global Compensation Director Name Role Phone Luca Hanna MD Primary Care Provider + Encounter Details Date Type Department Care Team (Late st Contact Info) Description 11/03/2020 Lab Requisition [facility] Pathology Lab [address] [place] [address] Brayan Mary MD [address] [place] [id number] Illness, unspecified Social History Tobacco Use Types Packs/Day Years Used Date Smoking Tobacco: Never Assessed Sex and Gender Information Value Date Recorded Sex Assigned at Not on file Legal Sex Male 12:36 PM PRACTICE SPECIALIST Gender Identity Not on file Sexual Orientation Not on file documented as of this encounter Plan of Treatment Not on file documented as of this encounter Procedures Procedure Name Priority Date/Time Associated Diagnosis Comments BONE MARROW BIOPSY (STL) Routine 11/02/2020 8:50 AM PRACTICE SPECIALIST Illness, unspecified documented in this encounter Results * BONE MARROW BIOPSY (STL) (11/02/2020 8:50 AM PRACTICE SPECIALIST) Case Report Bone Marrow Patholog y Report Case: [id number] Authorizing Provider: Brayan Mary MD Collected: 11/02/2020 08:50 AM Ordering Location: [facility] Pathology Lab Received: 11/03/2020 04:32 PM Pathologist: Rachele Ramirez Mai, DO Specimens: A) - Bone Marrow Clot B) - Bone Marrow Core C) - Bone Marrow Aspirate 11/05/2020 7:16 PM PRACTICE SPECIALIST U PATHOLOGY LAB Final Diagnosis Bone marrow, aspirate, clot section, and core biopsy: - Variably cellular marrow with maturing trilineage hematopoiesis. - No morphologic evidence of lymphoma or high-grade myeloid neoplasm. - See description. Peripheral blood smear: - Normocytic normochromic anemia. - See description. 11/05/2020 7:16 PM [facility] PATHOLOGY LAB at [address] PRACTICE SPECIALIST AP Comment Overall, the bone marrow specimen is variably cellular with maturing trilineage hematopoiesis and no morphologic evidence of lymphoma, a high-grade myeloid neoplasm, or significant dyspoiesis. Concurrent flow cytometric analysis corroborates this diagnosis. Correlation with clinical findings and relevant cytogenetic/molecular testing is required. 11/05/2020 7:16 PM [facility] Peripheral Smear Description Manual Differential Count (100 cells): 80% neutrophils, 10% lymphocytes, 7% monocytes, 2% eosinophils, and 1% basophils. 0 nRBCs / 100 WBCs. Leukocyte number: Adequate Granulocyte morphology: Normal Lymphocyte morphology: Normal Erythrocyte number: Decreased Erythrocyte morphology: Normocytic normochromic Anisopoikilocytosis: Not significant Polychromasia: Not significant Platelet number: Increased Platelet morphology: Normal 11/05/2020 7:16 PM [facility] Bone Marrow Aspirate Differential count (200 cells): 0% blasts, 83.5% maturing myeloid precursors, 4.5% erythroid progenitors, 2.5% monocytes, 1.5% eosinophils, 8% lymphocytes, 0% plasma cells. Specimen quality: Suboptimal, aspiculate and hemodilute Spicules: Absent Trilineage Hematopoiesis: Hemodilute sample with only rare erythroids and no megakaryocytes seen on scanning Myeloid:Erythroid ratio: Cannot accurately assess (suboptimal sample) Myeloid/erythroid Maturation: Cannot accurately assess (suboptimal sample) Megakaryocyte morphology: Cannot accurately assess (suboptimal sample) Storage iron (by special stain): Suboptimal sample, cannot assess. Control is appropriately reactive. Sideroblastic iron (by special stain): Suboptimal sample, cannot assess 11/05/2020 7:16 PM [facility] Bone Marrow Core Biopsy and Clot Section Description Specimen quality: Excellent, 2.0 cm of evaluable marrow Cellularity: Variable, 20-50% Trilineage Hematopoiesis: Present Myeloid to Erythroid ratio: Normal Myeloid maturation and localization: Normal Erythroid maturation and localization: Normal Megakaryocyte number: Normal Megakaryocyte distribution: Scattered in the interstitium, rare loose clustering Lymphoid aggregates: There is a tiny reactive lymphoid aggregate composed of CD3 positive T cells but no B-cell aggregates Bone trabeculae: Normal Blood vessels: Normal Clot section marrow particles: Absent Clot section morphology: Peripheral blood Immunohistochemical stains are performed on the core biopsy in the [facility] Department of Pathology, with appropriately reactive controls, and demonstrate the following: CD3: Highlights small mature T cells including a small circumscribed lymphoid aggregate CD20: Highlights small mature B cells PAX-5: Essentially negative BCL-6: Negative BCL-2: Stains scattered T cells 11/05/2020 7:16 PM [facility] Flow Cytometry Summary [id number]: No evidence of non-Hodgkin lymphoma or high-grade myeloid neoplasm. 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 [place] [address]. All original materials are returned to the referring institution, along with a copy of our final report. 11/05/2020 7:16 PM [facility] Disclaimer The performance characteristics of all immunohistochemical and indirect immunofluorescence stains (if any) cited in this report were determined by the Histopathology Laboratory of [facility]. Some of these tests were developed by [...] and interpreted by the attending (teaching) pathologist. 11/05/2020 7:16 PM [facility] Embedded Images 11/05/2020 7:16 PM [facility] Pathology/Cytology SPECIMEN FROM BONE MARROW OBTAINED BY ASPIRATION / Unknown 11/02/2020 8:50 AM PRACTICE SPECIALIST 11/03/2020 4:32 PM PRACTICE SPECIALIST Miscellaneous samples (specimen) BONE MARROW SPECIMEN / Unknown 11/02/2020 8:50 AM PRACTICE SPECIALIST 11/03/2020 4:32 PM PRACTICE SPECIALIST Miscellaneous samples (specimen) SPECIMEN FROM BONE MARROW OBTAINED BY ASPIRATION / Unknown 11/02/2020 8:50 AM PRACTICE SPECIALIST 11/03/2020 4:32 PM PRACTICE SPECIALIST Brayan Mary MD LAB - PATHOLOGY/CYTOLOGY ORDER COOPER Final Result [facility] [address] [phone] documented in this encounter Visit Diagnoses Diagnosis Illness, unspecified documented in this encounter Care Teams Global Compensation Director Relationship Specialty Start Date End Date Luca Hanna MD [address] [address] PCP - General 10/20/20 documented as of this encounter
--- OUTSIDE RECORDS SUMMARY | 2025-04-10 10:33 | XMS_ITS | Encounter Summary ---
Author Organization [facility] Address [address] [place] [address] Care Team Providers Care Legal Financial Specialist Name Role Phone Luca Hanna MD Primary Care Provider + Encounter Details Date Type Department Care Team (Late st Contact Info) Description 11/02/2020 Lab Requisition [facility] Pathology Lab [address] [place] [address] Brayan Mary MD [address] [place] [id number] Diffuse large B-cell lymphoma, unspecified site Social History Tobacco Use Types Packs/Day Years Used Date Smoking Tobacco: Never Assessed Sex and Gender Information Value Date Recorded Sex Assigned at Not on file 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 Gender Identity Not on file Sexual Orientation Not on file documented as of this encounter Plan of Treatment Not on file documented as of this encounter Procedures Procedure Name Priority Date/Time Associated Diagnosis Comments FLOW CYTOMETRY BONE MARROW Routine 11/02/2020 8:50 AM PRODUCTION TROUBLESHOOTER Diffuse large B-cell lymphoma, unspecified site documented in this encounter Results * FLOW CYTOMETRY BONE MARROW (11/02/2020 8:50 AM PRODUCTION TROUBLESHOOTER) Case Report Flow Cytometry Case: [id number] Authorizing Provider: Brayan Mary MD Collected: 11/02/2020 08:50 AM Ordering Location: [facility] Pathology Lab Received: 11/02/2020 02:27 PM Pathologist: Rachele Ramirez Mai, DO Specimen: Bone Marrow 11/02/2020 5:55 PM PRODUCTION TROUBLESHOOTER U PATHOLOGY LAB Final Diagnosis Bone marrow, flow cytometric immunophenotypic analysis: - No evidence of non-Hodgkin lymphoma or high-grade myeloid neoplasm. - See interpretation. 11/02/2020 5:55 PM [facility] at [address] PRODUCTION TROUBLESHOOTER Flow Cytometry Interpretation The bone marrow specimen has a borderline viability of 78%. The lymphocyte, dim CD45, monocyte, and granulocyte patterson are normal in relative proportion. Within the lymphocyte gate, there is no monotypic B-cell population identified (kappa: lambda ratio = 1.5:1). There is no expanded T-cell population seen. By CD34, 0.2% of all events analyzed are blasts. A bone marrow aspirate smear prepared from the flow cytometry specimen is reviewed for director of quality improvement purposes. The bone marrow aspirate specimen shows no evidence of involvement by non-Hodgkin lymphoma or a high-grade myeloid neoplasm. Correlation with clinical findings, the concurrent bone marrow core biopsy (accession number is pending), and relevant cytogenetic/molecu lar studies is required. 11/02/2020 5:55 PM [facility] PATH[facility] LAB Flow Cytometry Results Differential Result Comment Flow Cell Count /uL 24,500 Total Viability % 78.0 Lymphocytes % 20 Dim CD45 Region % 3 Monocytes % 11 Granulocytes % 65 11/02/2020 5:55 PM [facility] Reason for test Diffuse large B-cell lymphoma, unspecified site 11/02/2020 5:55 PM [facility] Client Specimen ID # [id number] 11/02/2020 5:55 PM [facility] Number of markers 10 were performed. A-1 Flow CD3 A-3 Flow CD10 A-5 Flow CD20 A-6 Flow CD23 A-2 Flow CD5 A-4 Flow CD19 A-7 Flow CD34 A-8 Flow CD45 A-9 [place]+CD19+ A-10 Lambda+CD19+ 11/02/2020 5:55 PM [facility] Disclaimer Test performed at [facility], [address] [place] [address], [id number]. *The established laboratory minimum viability is 70%. Values below the minimum may result in the failure to find an abnormal population of cells. This test was developed and its performance characteristics determined by the Flow Cytometry Laboratory. It has not been cleared by the [place] Food and Drug Administration (FDA). The FDA has determined that such clearance or approval is not necessary. This test is used for clinical purposes. It should not be regarded as investigational or for research. This laboratory is regulated under the Clinical Laboratory Improvement Amendments of 1998 (CLIA) as a qualified to perform high complexity clinical testing. 11/02/2020 5:55 PM PRODUCTION TROUBLESHOOTER [facility] PATH[facility] LAB Embedded Images 0 5:55 PM PRODUCTION TROUBLESHOOTER [facility] PATH[facility] LAB Pathology/Cytolo gy BONE MARROW SPECIMEN / Unknown 11/02/2020 8:50 AM PRODUCTION TROUBLESHOOTER 11/02/2020 2:27 PM PRODUCTION TROUBLESHOOTER Brayan Mary MD LAB - PATHOLOGY/CYTOLOGY ORDER COOPER Final Result [facility] [address] [phone] documented in this encounter Visit Diagnoses Diagnosis Diffuse large B-cell lymphoma, unspecified site (HCC) documented in this encounter Care Teams Legal Financial Specialist Relationship Specialty Start Date End Date Luca Hanna MD [address] [address] PCP - General 10/20/20 documented as of this encounter
[2025-04-10 10:51] LABS: Basophils Percent Auto 0.8 % (0.2-1.2); Eosinophils Absolute Auto 0.1 K/mm3 (0-0.3); Eosinophils Percent Auto 2.3 % (0-4.4); Hemoglobin 12.4 g/dL (14.0-18.0); Immature Granulocyte Absolute 0.01 K/mm3 (0.00-0.031); Immature Granulocyte Percent A 0.2 % (0-0.5); Lymphocytes Absolute Auto 0.99 K/mm3 (0.9-3.2); Mean Corpuscular HGB Conc 32.6 g/dl (32-36); Mean Platelet Volume 9.8 fl (7.4-10.4); Monocytes Absolute Auto 0.5 K/mm3 (0.1-0.6); Monocytes Percent Auto 11.4 % (2.6-8.5); Neutrophils Percent Auto 64.3 % (45.5-73.1); Platelet Count Result 216 k/mm3 (150-375); Red Blood Count 4.27 M/mm3 (4.6-6.20); Red Cell Distribution Width 12.4 % (11.5-14.5); White Blood Count 4.7 K/mm3 (4.5-10.0)
[2025-04-10 12:03] LABS: Iron 132 ug/dL (49-181)
[2025-04-10 12:12] LABS: Alanine Aminotransferase 17 U/L (6-50); Albumin Level 4.3 g/dL (3.5-5.1); Alkaline Phosphatase 70 U/L (38-126); Anion Gap 5 mmol/L (4-12); Aspartate Amino Transferase 33 U/L (17-59); Bilirubin,Total 0.6 mg/dL (0.2-1.3); Blood Urea Nitrogen 19 mg/dL (9-20); Calcium 9.3 mg/dL (8.4-10.2); Carbon Dioxide 27 mmol/L (22-30); Chloride 109 mmol/L (98-107); Estimated Glomerular Filt Rate > 60; Glucose 94 mg/dL (65-110); Lactate Dehydrogenase 176 U/L (120-246); Potassium 4.5 mmol/L (3.4-5.0); Sodium 141 mmol/L (137-145)
[2025-04-10 12:15] LABS: Percent Iron Saturation 37 % (20-50)
[2025-04-10 13:21] LABS: Folic Acid 8.5 ng/mL (2.76->20)
== END 2025-04-10 10:31 | disposition home or self-care (01) ==
LOC: ANHLAB 10:31
PROVIDERS: PCP Family Medicine Adolescent Medicine; Visit Provider Internal Medicine Hematology & Oncology
DX: D64.9 Anemia, unspecified (principal)
CPT/HCPCS: 36415; 80053; 82607; 82728; 82746; 83540; 83550; 83615; 85025

== ENCOUNTER 2025-05-16 12:32 | Outpatient (CLI) | payer MEDICARE, SELFPAY ==
--- NOTE | 2025-05-16 12:35 | ECHO_ITS ---
Patient Info Name: Charles Rodriguez Age: 74 years : 1950 Gender: Male Ht: 75 in Wt: 161 lbs BSA: 1.95 m2 HR: 66 bpm BP: 135 / 82 mmHg Technical Quality: Good Exam Date: 05/16/2025 12:46 PM Patient Status: O Admit Date: 05/16/2025 Exam Type: CA echo doppler color flow Complete two-dimensional, color flow and Doppler transthoracic echocardiogram is performed. Strain analysis performed. Veneer Grader: Valorie Farnsworth Attending Provider: Stalin Manzanares DO Summary 1. Complete two-dimensional, color flow and Doppler transthoracic echocardiogram is performed. 2. Left ventricular chamber dimension is normal. 3. Left ventricular systolic function is preserved, estimated at 50-55. 4. The left ventricular diastolic function is grade I diastolic dysfunction. 5. Global longitudinal strain is normal at -17.1%. 6. E/e' 8 is minimally elevated. 7. Left atrial chamber dimension is mildly enlarged. 8. Right atrial chamber dimension is mildly enlarged. 9. The mitral valve has a moderate calcified annulus and moderate posterior prolapse. 10. There is mild mitral valve regurgitation. 11. There is mild to moderate tricuspid valve regurgitation. 12. No pulmonary hypertension, estimated pulmonary arterial systolic pressure is 24 mmHg. Left Ventricle E/e' 8 is minimally elevated. Left ventricular chamber dimension is normal. Left ventricular systolic function is preserved, estimated at 50-55. The left ventricular diastolic function is grade I diastolic dysfunction. Global longitudinal strain is normal at -17.1%. Right Ventricle Right ventricular chamber dimension is normal. Right ventricular systolic function is normal. Left Atria Left atrial chamber dimension is mildly enlarged. Right Atria Right atrial chamber dimension is mildly enlarged. Aortic Valve The aortic valve is trileaflet. There is no aortic valve stenosis. There is no aortic valve regurgitation. Pulmonic Valve There is no pulmonic regurgitation. Mitral Valve The mitral valve has a moderate calcified annulus and moderate posterior prolapse. There is no mitral valve stenosis. There is mild mitral valve regurgitation. Tricuspid Valve There is mild to moderate tricuspid valve regurgitation. No pulmonary hypertension, estimated pulmonary arterial systolic pressure is 24 mmHg. Pericardium/Pleural There is no pericardial effusion. Inferior Vena Cava Normal inferior vena cava with >50% collapse upon inspiration consistent with normal right atrial pressure, 5 mmHg. Aorta The aortic root size at the sinus of Valsalva is normal. Left Ventricular Outflow Tract Name Value Normal LVOT 2D LVOT Diameter 2.0 cm LVOT Doppler LVOT Peak Velocity 72 cm/s LVOT Peak Gradient 2 mmHg LVOT Mean Gradient 1 mmHg LVOT VTI 14 cm LVOT VTI/AV VTI Ratio 0.8 LVOT Stroke Volume 44 ml LVOT CO 3.0 l/min LVOT CI 1.6 l/min/m2 Pulmonic Valve Name Value Normal RVOT Doppler RVOT Peak Velocity 56 cm/s RVOT Peak Gradient 1 mmHg PV Doppler PV Peak Velocity 88 cm/s PV Peak Gradient 3 mmHg Mitral Valve Name Value Normal MV Regurgitation Doppler MR Peak Gradient 134 mmHg MV Diastolic Function MV E Peak Velocity 60 cm/s MV A Peak Velocity 84 cm/s MV E/A 0.7 MV Decel Time (PW) 253 ms Tricuspid Valve Name Value Normal TV Regurgitation Doppler TR Peak Velocity 220 cm/s TR Peak Gradient 19 mmHg Estimated PAP/RSVP RA Pressure 5 mmHg <=5 PA Systolic Pressure 24 mmHg <36 RV Systolic Pressure 24 mmHg <36 Aorta Name Value Normal Ascending Aorta Ao Root Diameter (MM) 3.5 cm Ao Root Diam Index (MM) 1.8 cm/m2 Aortic Valve Name Value Normal AV Doppler AV Peak Velocity 91 cm/s AV Peak Gradient 3 mmHg AV Mean Gradient 2 mmHg AV VTI 17 cm AV Area (Cont Eq VTI) 2.6 cm2 >=3.0 AV Area (Cont Eq Migel) 2.5 cm2 AV DI (Migel) 0.79 AV Regurgitation 2D LVOT Area 3.2 cm2 Ventricles Name Value Normal LV Dimensions 2D/MM IVS Diastolic Thickness (2D) 0.6 cm 0.6-1.0 IVS Diastole Thickness (MM) 0.6 cm 0.6-1.0 LVID Diastole (2D) 5.2 cm 4.2-5.8 LVID Diastole (MM) 6.0 cm 4.2-5.8 LVIW Diastolic Thickness (2D) 0.9 cm 0.6-1.0 LVIW Diastolic Thickness (MM) 0.5 cm 0.6-1.0 LVID Systole (2D) 3.9 cm 2.5-4.0 LVID Systole (MM) 4.0 cm 2.5-4.0 LVOT Diameter 2.0 cm LV Mass (2D Cubed) 135.95 g 88.00-224.00 LV Mass Index (2D Cubed) 70 g/m2 49-115 Relative Wall Thickness (2D) 0.34 <=0.42 LV Mass (MM Cubed) 128.98 g 88.00-224.00 LV Mass Index (MM Cubed) 66 g/m2 49-115 Relative Wall Thickness (MM) 0.18 LV Fractional Shortening/Ejection Fraction 2D/MM LV Fractional Shortening (2D) 26 % 25-43 LV Fractional Shortening (MM) 33 % 25-43 LV EF (MM Teichholz) 60 % LV EF (2D Teichholz) 51 % LV Diastolic Volume (4C MOD) 73 ml LV EF (4C MOD) 52 % LV Diastolic Volume (2C MOD) 67 ml LV EF (2C MOD) 50 % LV Diastolic Volume (BP MOD) 70 ml 62-150 LV Diastolic Volume Index (BP MOD) 36 ml/m2 34-74 LV Systolic Volume (BP MOD) 34 ml 21-61 LV Systolic Volume Index (BP MOD) 18 ml/m2 11-31 LV EF (BP MOD) 51 % 52-72 LV Diastolic Length (4C) 7.9 cm LV Systolic Length (4C) 7.6 cm LV Stroke Volume (4C MOD) 38 ml Atria Name Value Normal LA Dimensions LA Dimension (MM) 3.2 cm 3.0-4.0 LA Volume (4C A-L) 63 ml LA Volume (BP A-L) 62 ml RA Dimensions RA Systolic Major Austin Length (4C) 4.4 cm 2.1-2.7 RA Area (4C) 16.8 cm2 <=18.0 EchoPAC Name Value Normal AutoEF LVCO_BiP_Q (Mdkl4YGV) 3.4 l/min LVEF_BiP_Q (Hdii4KEM) 54 % LVSV_BiP_Q (Pyco2SJG) 52 ml LVVED_BiP_Q (Eaao1LZB) 95 ml LVVES_BiP_Q (Ynyu5POM) 43 ml HR_4Ch_Q (Uinz2BDD) 62 bpm LVCO_4Ch_Q (Mmlh2OMP) 2.4 l/min LVEF_4Ch_Q (Pnjd5DYO) 48 % LVLd_4Ch_Q (Rxpl3NLF) 8.2 cm LVLs_4Ch_Q (Hkve6NPE) 7.1 cm LVSV_4Ch_Q (Hdcn9OJP) 38 ml LVVED_4Ch_Q (Hbyp8JED) 81 ml LVVES_4Ch_Q (Ripm0UYL) 42 ml HR_2Ch_Q (Zzxz2PFW) 64 bpm LVCO_2Ch_Q (Fkhj7LSP) 4.4 l/min LVEF_2Ch_Q (Obik7XHR) 59 % LVLd_2Ch_Q (Hyvl4WNF) 9.0 cm LVLs_2Ch_Q (Ohss8UCD) 7.4 cm LVSV_2Ch_Q (Mfqh5SME) 68 ml LVVED_2Ch_Q (Sjah5HJL) 115 ml LVVES_2Ch_Q (Qnzl5UUQ) 47 ml ASHA LV Apical Anterior Longitudinal Strain (ASHA) -17.4 % LV Apical Anteroseptal Longitudinal Strain (ASHA) -22.1 % LV Apical Inferior Longitudinal Strain (ASHA) -25.5 % LV Apical Lateral Longitudinal Strain (ASHA) -21.7 % LV Apical Posterior Longitudinal Strain (ASHA) -20.2 % LV Apical Septal Longitudinal Strain (ASHA) -23.0 % AV Closure (ASHA) 400 ms LV Basal Anterior Longitudinal Strain (ASHA) -19.3 % LV Basal Anteroseptal Longitudinal Strain (ASHA) -18.5 % LV Basal Inferior Longitudinal Strain (ASHA) -12.5 % LV Basal Anterolateral Longitudinal Strain (ASHA) -14.6 % LV Basal Inferolateral Longitudinal Strain (ASHA) -14.6 % LV Basal Inferoseptal Longitudinal Strain (ASHA) -6.1 % LV Global Longitudinal Strain (2C ASHA) -17.7 % LV Global Longitudinal Strain (4C ASHA) -15.8 % LV Global Longitudinal Strain (APLAX ASHA) -18.1 % LV Global Longitudinal Strain (ASHA) -17.2 % LV Mid Anterior Longitudinal Strain (ASHA) -12.1 % LV Mid Anteroseptal Longitudinal Strain (ASHA) -19.5 % LV Mid Inferior Longitudinal Strain (ASHA) -21.7 % LV Mid Anterolateral Longitudinal Strain (ASHA) -21.7 % LV Mid Inferolateral Longitudinal Strain (ASHA) -19.6 % LV Mid Inferoseptal Longitudinal Strain (ASHA) -17.0 % Report Signatures
== END 2025-05-16 12:33 | disposition home or self-care (01) ==
PROVIDERS: PCP Family Medicine Adolescent Medicine; Visit Provider Internal Medicine Cardiovascular Disease
DX: I08.1 Rheumatic disorders of both mitral and tricuspid valves (principal)
CPT/HCPCS: 93306

== ENCOUNTER 2025-10-06 07:48 | Outpatient (CLI) | payer MEDICARE, SELFPAY | END 2025-10-06 07:49 | disposition home or self-care (01) | LOC: ANHAUDASC 07:50 | PROVIDERS: PCP Family Medicine Adolescent Medicine; Visit Provider Otolaryngology | DX: H93.8X3 Other specified disorders of ear, bilateral (principal); H90.3 Sensorineural hearing loss, bilateral; H74.8X1 Other specified disorders of right middle ear and mastoid; H69.93 Unspecified Eustachian tube disorder, bilateral | CPT/HCPCS: 92557; 92567 ==

== ENCOUNTER 2025-10-13 09:26 | Outpatient (CLI) | payer MEDICARE, SELFPAY ==
--- NOTE | ~2025-10-13 | CT_ITS ---
EXAMINATION: CT abdomen pelvis w con DATE: 10/13/2025 10:12 INDICATION: History diffuse B-cell lymphoma. TECHNIQUE: Computed tomography (CT) of the abdomen and pelvis was performed with administration of 100 cc intravenous contrast. Automated exposure control and iterative reconstruction technique were employed. The dose-length product was 288.28 mGy-cm. COMPARISON: CT abdomen pelvis with contrast dated 08/23/2024. FINDINGS: Lung bases do not show focal lesions are effusion. Large hiatus hernia is noted in the lower mediastinum. Stable 4 cm cyst of the left lobe of the liver. Normal size liver and spleen. Gallbladder pancreas do not show focal abnormalities. Kidneys do not show obstructive changes. Parapelvic cysts of the left kidney are stable. No evidence of retroperitoneal adenopathy. Moderate atherosclerotic aorta. No ascites. No pelvic adenopathy. Moderately enlarged prostate gland. No blastic or lytic lesions of the lumbar spine and pelvic bones. Significant degenerative disc changes at multiple lumbar levels. IMPRESSION: 1. No evidence of abdominal or pelvic lymphadenopathy or ascites. No focal lesions of liver and spleen. 2. Hiatus hernia. Enlarged prostate. 3. Scoliosis of the lumbar spine with degenerative disc disease. 4. No significant change compared with's previous examination dated 08/23/2024. Reviewed, dictated and finalized at location T. RIAL REPROCESSING ASSOCIATE IMPRESSION: 1. No evidence of abdominal or pelvic lymphadenopathy or ascites. No focal lesi ons of liver and spleen. 2. Hiatus hernia. Enlarged prostate. 3. Scoliosis of the lumbar spine with degenerative disc disease. 4. No significant change compared with's previous examination dated 08/23/2024.
[2025-10-13 10:09] LABS: Estimated Glomerular Filt Rate 59
--- OUTSIDE RECORDS SUMMARY | 2025-10-13 10:34 | XMS_ITS | Clinical Summary ---
Author Organization [facility] Address [address], [address] [address] Phone Care Team Providers Care Director Title Name Role Phone Luca Hanna MD Primary Care Provider + Allergies No known active allergies Medications polyethylene glycol (MIRALAX) Powder Mix the entire bottle with 64 oz of a clear liquid. Use as directed by the office for colonoscopy prep. 255 g 0 6 Active [place]-3 Fatty Acids (FISH OIL) 1200 MG Capsule [...] 0.5 Tabs by mouth daily. Active Saw [place], [place] repens, 450 MG Capsule Take 1 Cap by mouth daily. Active [place] 650 MG Tablet Take 1 Tab by [...] (HCV) Screening 1950 TdaP Immunization 1950 Cologuard 1994 Immunochemical Fecal Occult Blood 1994 Pneumococcal Immunization (5 0+ years) (1 of 1 - PCV) 1999 Zoster Immunization (1 of 2) 1999 Respiratory Syncytial Virus (RSV) Immunization (Adult) (1 - 1-dose 75+ series) 2024 Influenza Immunization (#1) 2025 SARS-COV-2 Immunization ( - season) 2025 Colonoscopy 09/19/2026 09/19/2016 Colorectal Cancer Screening 09/19/2026 Hepatitis B Immunization Aged Out No longer eligible based on patient's age to complete this topic Human Papillomavirus (HPV) Immunization Aged Out No longer eligible b ased [...] to Health Maintenance Results * COLONOSCOPY (09/19/2016) Mathieu Castro DO PROCEDURE/MINOR SURGICAL ORDERA BLES Final Result from Last 3 Months or Most Recently Relevant to Health Maintenance Care Teams Director Title Relationship Specialty Start Date End Date Luca Hanna MD PCP - General Family Medicine 09/21/16
--- OUTSIDE RECORDS SUMMARY | 2025-10-13 10:34 | XMS_ITS | Encounter Summary ---
Author Organization [facility] Address [address] [place] [address] Care Team Providers Care Automobiles Salesperson Name Role Phone Luca Hanna MD Primary Care Provider + Encounter Details Date Type Department Care Team (Late st Contact Info) Description 10/20/2020 Lab Requisition [facility] Care Pathology Lab [address] [place] [address] Brayan Mary MD [address] [place] [phone] Illness, unspecified Social History Tobacco Use Types Packs/Day Years Used Date Smoking Tobacco: Never Assessed Sex and Gender Information Value Date Recorded Sex Assigned at Not on file Legal Sex Male 12:36 PM SAP DATA ARCHITECT Gender Identity Not on file Sexual Orientation Not on file documented as of this encounter Plan of Treatment Not on file documented as of this encounter Procedures Procedure Name Priority Date/Time Associated Diagnosis Comments PATHOLOGY TISSUE Routine 10/19/2020 11:3 6 AM SAP DATA ARCHITECT Illness, unspecified documented in this encounter Results * PATHOLOGY TISSUE (10/19/2020 11:36 AM SAP DATA ARCHITECT) Case Report Surgical Pathology Report Case: [id number] Authorizing Provider: Brayan Mary MD Collected: 10/19/2020 11:36 AM Ordering Location: [facility] Care Pathology Lab Received: 10/20/2020 03:46 PM Pathologist: Aby Cleaning MD Specimen: Colon Biopsy 10/21/2020 4:48 PM SAP DATA ARCHITECT [facility] Final Diagnosis Small intestine, excision (A): - Diffuse large B-cell lymphoma, germinal center type - See description 10/21/2020 4:48 PM SAP DATA ARCHITECT [facility] at 1648 SAP DATA ARCHITECT Microscopic Description and Comment Received from [facility] are 11 H&E-stained glass slides, 2 smears, [...] no obvious restriction Flow cytometry performed at [facility] reportedly showed a clonal kappa light chain restricted CD10+ B-cell population (specimen ID [id number]) The results are most consistent with diffuse large B-cell lymphoma, germinal center type. The results of FISH for BCL2 and C-MYC rearrangements will be reported as an addendum. 10/21/2020 4:48 PM [facility] Clinical History The patient is a 69-year-old male who during workup for back pain was found to have a small bowel mass on CT scan and underwent excisional biopsy. 10/21/2020 4:48 PM [facility] Materials Received Received are 11 blocks (A1-A11) and 13 slide(s) labeled [id number] along with a copy of the outside pathology report. The materials originate from [facility], [address] [place] [address]. All original materials are returned to the referring institution, along with a copy of our final report. 10/21/2020 4:48 PM [facility] Disclaimer The performance characteristics of all immunohistochemical and indirect immunofluorescence stains (if any) cited in this report were determined by the Histopathology Laboratory of [facility]. Some of these tests were developed [...] the attending (teaching) pathologist. 10/21/2020 4:48 PM SAP DATA ARCHITECT [facility] Embedded Images 10/21/2020 4:48 PM SAP DATA ARCHITECT [facility] Pathology/Cytolo gy COLONIC BIOPSY SPECIMEN / Unknown 10/19/2020 11:36 AM SAP DATA ARCHITECT 10/20/2020 3:46 PM SAP DATA ARCHITECT Brayan Mary MD LAB - PATHOLOGY/CYTOLOGY ORDER COOPER Final Result [facility] LAB [address] [phone] documented in this encounter Visit Diagnoses Diagnosis Illness, unspecified documented in this encounter Care Teams Automobiles Salesperson Relationship Specialty Start Date End Date Luca Hanna MD [address] [address] PCP - General 10/20/20 documented as of this encounter
--- OUTSIDE RECORDS SUMMARY | 2025-10-13 10:34 | XMS_ITS | Encounter Summary ---
Author Organization [facility] Address [address] [place] [address] Care Team Providers Care Powderman Name Role Phone Luca Hanna MD Primary Care Provider + Encounter Details Date Type Department Care Team (Late st Contact Info) Description 11/02/2020 Lab Requisition [facility] Pathology Lab [address] [place] [address] Brayan Mary MD [address] [place] [phone] Diffuse large B-cell lymphoma, unspecified site Social History Tobacco Use Types Packs/Day Years Used Date Smoking Tobacco: Never Assessed Sex and Gender Information Value Date Recorded Sex Assigned at Not on file Legal Sex Male 12:36 PM CLIENT RELATIONS REPRESENTATIVE Gender Identity Not on file Sexual Orientation Not on file documented as of this encounter Plan of Treatment Not on file documented as of this encounter Procedures Procedure Name Priority Date/Time Associated Diagnosis Comments FLOW CYTOMETRY BONE MARROW Routine 11/02/2020 8:50 AM CLIENT RELATIONS REPRESENTATIVE Diffuse large B-cell lymphoma, unspecified site documented in this encounter Results * FLOW CYTOMETRY BONE MARROW (11/02/2020 8:50 AM CLIENT RELATIONS REPRESENTATIVE) Case Report Flow Cytometry Case: [id number] Authorizing Provider: Brayan Mary MD Collected: 11/02/2020 08:50 AM Ordering Location: [facility] Care Pathology Lab Received: 11/02/2020 02:27 PM Pathologist: Rachele Ramirez Mai, DO Specimen: Bone Marrow 11/02/2020 5:55 PM CLIENT RELATIONS REPRESENTATIVE [facility] Final Diagnosis Bone marrow, flow cytometric immunophenotypic analysis: - No evidence of non-Hodgkin lymphoma or high-grade myeloid neoplasm. - See interpretation. 11/02/2020 5:55 PM [facility] at 1755 CLIENT RELATIONS REPRESENTATIVE Flow Cytometry Interpretation The bone marrow specimen [...] the flow cytometry specimen is reviewed for quality consultant purposes. The bone marrow aspirate specimen shows no evidence of involvement by non-Hodgkin lymphoma or a high-grade myeloid neoplasm. Correlation with clinical findings, the concurrent bone marrow core biopsy (accession number is pending), and relevant cytogenetic/molecu lar studies is required. 11/02/2020 5:55 PM [facility] Flow Cytometry Results Differential Result Comment Flow Cell Count /uL 24,500 Total Viability % 78.0 Lymphocytes % 20 Dim CD45 Region % 3 Monocytes % 11 Granulocytes % 65 11/02/2020 5:55 PM [facility] Reason for test Diffuse large B-cell lymphoma, unspecified site 11/02/2020 5:55 PM [facility] Client Specimen ID # [id number] 11/02/2020 5:55 PM [facility] Number of markers 10 were performed. A-1 Flow CD3 A-3 Flow CD10 A-5 Flow CD20 A-6 Flow CD23 A-2 Flow CD5 A-4 Flow CD19 A-7 Flow CD34 A-8 Flow CD45 A-9 [place]+CD19+ A-10 Lambda+CD19+ 11/02/2020 5:55 PM [facility] Disclaimer Test performed at [facility], [address] [place] [address], [id number]. *The established laboratory minimum viability is 70%. [...] high complexity clinical testing. 11/02/2020 5:55 PM CLIENT RELATIONS REPRESENTATIVE [facility] PATH[facility] LAB Embedded Images 0 5:55 PM CLIENT RELATIONS REPRESENTATIVE [facility] Pathology/Cytolo gy BONE MARROW SPECIMEN / Unknown 11/02/2020 8:50 AM CLIENT RELATIONS REPRESENTATIVE 11/02/2020 2:27 PM CLIENT RELATIONS REPRESENTATIVE Brayan Mary MD LAB - PATHOLOGY/CYTOLOGY ORDER COOPER Final Result [facility] [address] [phone] documented in this encounter Visit Diagnoses Diagnosis Diffuse large B-cell lymphoma, unspecified site (HCC) documented in this encounter Care Teams Powderman Relationship Specialty Start Date End Date Luca Hanna MD [address] [address] PCP - General 10/20/20 documented as of this encounter
--- OUTSIDE RECORDS SUMMARY | 2025-10-13 10:34 | XMS_ITS | Clinical Summary ---
Author Organization [facility] Address [address] [place] [address] Care Team Providers Care Bird Sitter Name Role Phone Luca Hanna MD Primary Care Provider + Source Comments [facility],non-owned Affiliates and Associated Physician Practices is amultiple site organization consisting of ambulatory clinics and hospital sitesin [place], [place], [place] and [place]. This disclosure is being madepursuant to the Care Everywhere program and may not contain all information available regarding this patient. Last updated 18.[facility] Social History Tobacco Use Types Packs/Day Years Used Date Smoking Tobacco: Never Assessed Sex and Gender Information Value Date Recorded Sex Assigned at Not on file Legal Sex Male 12:36 PM BUSINESS BROKER Gender Identity Not on file Sexual Orientation Not on file Plan of Treatment Health Maintenance Due Date Last Done Comments HEPATITIS C SCREENING 09/30/1967 DTAP/TDAP/TD VACCINES (1 - Tdap) 1968 PNEUMOCOCCAL VACCINE 50+ (1 of 1 - PCV) 1999 ZOSTER VACCINE (1 of 2) 1999 Respiratory Syncytial Virus (RSV) Vaccine Pt: or over 60 yrs (1 - 1-dose 75+ series) 2024 DEPRESSION SCREENING 11/20/2024 COVID-19 VACCINE (1 - 2024-2 6 season) 2025 INFLUENZA VACCINE (#1) 2025 HEPATITIS B VACCINE Aged Out No [...] patient's age to complete this topic Insurance [facility] MEDICARE ADV Care Teams Bird Sitter Relationship Specialty Start Date End Date Luca Hanna MD [address] [facility] [address] [place] [address] PCP - General 10/20/20
--- OUTSIDE RECORDS SUMMARY | 2025-10-13 10:34 | XMS_ITS | Encounter Summary ---
Author Organization [facility] Address [address] [place] [address] Care Team Providers Care Golf Cart Attendant Name Role Phone Lcua Hanna MD Primary Care Provider + Encounter Details Date Type Department Care Team (Late st Contact Info) Description 11/03/2020 Lab Requisition [facility] Pathology Lab [address] [place] [address] Brayan Mary MD [address] [place] [id number] Illness, unspecified Social History Tobacco Use Types Packs/Day Years Used Date Smoking Tobacco: Never Assessed Sex and Gender Information Value Date Recorded Sex Assigned at Not on file Legal Sex Male 12:36 PM MINING SUPPORT WORKER Gender Identity Not on file Sexual Orientation Not on file documented as of this encounter Plan of Treatment Not on file documented as of this encounter Procedures Procedure Name Priority Date/Time Associated Diagnosis Comments BONE MARROW BIOPSY (STL) Routine 11/02/2020 8:50 AM MINING SUPPORT WORKER Illness, unspecified documented in this encounter Results * BONE MARROW BIOPSY (STL) (11/02/2020 8:50 AM MINING SUPPORT WORKER) Case Report Bone Marrow Patholog y Report Case: [id number] Authorizing Provider: Brayan Mary MD Collected: 11/02/2020 08:50 AM Ordering Location: [facility] Pathology Lab Received: 11/03/2020 04:32 PM Pathologist: Rachele Ramirez Mai, DO Specimens: A) - Bone Marrow Clot B) - Bone Marrow Core C) - Bone Marrow Aspirate 11/05/2020 7:16 PM MINING SUPPORT WORKER [facility] PATH[facility] Final Diagnosis Bone marrow, aspirate, clot section, and core biopsy: - Variably cellular marrow with maturing trilineage hematopoiesis. - No morphologic evidence of lymphoma or high-grade myeloid neoplasm. - See description. Peripheral blood smear: - Normocytic normochromic anemia. - See description. 11/05/2020 7:16 PM [facility] LAB at [address] MINING SUPPORT WORKER AP Comment Overall, the bone marrow specimen is variably cellular with maturing trilineage hematopoiesis and no morphologic evidence of lymphoma, a high-grade myeloid neoplasm, or significant dyspoiesis. Concurrent flow cytometric analysis corroborates this diagnosis. Correlation with clinical findings and relevant cytogenetic/molecular testing is required. 11/05/2020 7:16 PM [facility] Peripheral Smear Description Manual Differential Count (100 cells): 80% neutrophils, 10% lymphocytes, 7% monocytes, 2% eosinophils, and 1% basophils. 0 nRBCs / 100 WBCs. Leukocyte number: Adequate Granulocyte morphology: Normal Lymphocyte morphology: Normal Erythrocyte number: Decreased Erythrocyte morphology: Normocytic normochromic Anisopoikilocytosis: Not significant Polychromasia: Not significant Platelet number: Increased Platelet morphology: Normal 11/05/2020 7:16 PM [facility] Bone Marrow Aspirate Differential count [...] Suboptimal sample, cannot assess 11/05/2020 7:16 PM [facility] Bone Marrow Core Biopsy and [...] performed on the core biopsy in the [facility] Department of Pathology, with appropriately reactive controls, and demonstrate the following: CD3: Highlights small mature T cells including a small circumscribed lymphoid aggregate CD20: Highlights small mature B cells PAX-5: Essentially negative BCL-6: Negative BCL-2: Stains scattered T cells 11/05/2020 7:16 PM [facility] Flow Cytometry Summary [id number]: No evidence of non-Hodgkin lymphoma or high-grade myeloid neoplasm. 11/05/2020 7:16 PM [facility] Clinical History History of diffuse large B-cell lymphoma in the small bowel 11/05/2020 7:16 PM [facility] Materials Received Received are 21 slide(s) and 3 blocks (A1, A2, B1) labeled [id number] along with a copy of the outside pathology report. [place] [address]. All original materials are returned to the referring institution, along with a copy of our final report. 11/05/2020 7:16 PM [facility] Disclaimer The performance characteristics of all immunohistochemical and indirect immunofluorescence stains (if any) cited in this report were determined by the Histopathology Laboratory of [facility]. Some of these tests were developed [...] the attending (teaching) pathologist. 11/05/2020 7:16 PM [facility] Embedded Images 11/05/2020 7:16 PM [facility] Pathology/Cytology SPECIMEN FROM BONE MARROW OBTAINED BY ASPIRATION / Unknown 11/02/2020 8:50 AM MINING SUPPORT WORKER 11/03/2020 4:32 PM MINING SUPPORT WORKER Miscellaneous samples (specimen) BONE MARROW SPECIMEN / Unknown 11/02/2020 8:50 AM MINING SUPPORT WORKER 11/03/2020 4:32 PM MINING SUPPORT WORKER Miscellaneous samples (specimen) SPECIMEN FROM BONE MARROW OBTAINED BY ASPIRATION / Unknown 11/02/2020 8:50 AM MINING SUPPORT WORKER 11/03/2020 4:32 PM MINING SUPPORT WORKER Brayan Mary MD LAB - PATHOLOGY/CYTOLOGY ORDER COOPER Final Result [facility] PATHOLOGY LAB [address] [phone] documented in this encounter Visit Diagnoses Diagnosis Illness, unspecified documented in this encounter Care Teams Golf Cart Attendant Relationship Specialty Start Date End Date Luac Hanna MD [address] [address] PCP - General 10/20/20 documented as of this encounter
--- OUTSIDE RECORDS SUMMARY | 2025-10-13 10:34 | XMS_ITS | Clinical Summary ---
Author Organization [facility] Jordan Stroud Address [address] [place] [address] Care Team Providers Care Wafer Fabrication Operator Name Role Phone Luca Hanna MD Primary Care Provider [phone]- [phone] Allergies No known active allergies Medications ferrous sulfate 325 mg (65 mg iron) tablet Take 325 mg by mouth 3 times daily with meals. Active ascorbic acid (VITAMIN C) 250 mg Tablet, Chewable Take by mouth. Active cyanocobalamin (VITAMIN B-12) 250 mcg Tablet Take 250 mcg by mouth daily. Active Active Problems Problem Noted Date Diagnosed Date Chronic anemia 03/17/2022 Diffuse large B-cell lymphoma 10/26/2020 Encounters Date Type Department Care Team Description 09/02/2025 External Device Data STL ABSTRACTION Provider, Abstract 08/05/2025 External Device Data [facility] ABSTRACTION Provider, Abstract 07/22/2025 External Device Data [facility] ABSTRACTION Provider, Abstract 07/22/2025 External Device Data STL ABSTRACTION Provider, Abstract from Last 3 Months Family History Medical History Relation Name Comments [...] on file Legal Sex Male 11:42 AM SPEECH LANGUAGE PATHOLOGIST PRN Gender Identity Not on file Sexual Orientation Not on file Last Filed Vital Signs Vital Sign Reading Time Taken Comments Blood Pressure 115/80 04/17/2025 2:20 PM CDT Pulse 85 04/17/2025 2:20 PM CDT Temperature 36.5 C (97.7 F) 04/17/2025 2:20 PM CDT Respiratory Rate 15 04/17/2025 2:20 PM CDT Oxygen Saturation 97% 04/17/2025 2:20 PM CDT Inhaled Oxygen Concentration - - Weight 72.7 kg (160 lb 3.2 oz) 04/17/2025 2:20 P M CDT Height 190.5 cm (6' 3) 07/29/2022 10:09 AM CDT Body Mass Index 20.02 07/29/2022 10:09 AM CDT Plan of Treatment Upcoming Encounters Date Type Department Care Team (Late st Contact Info) Description 01/19/2026 1:15 PM SPEECH LANGUAGE PATHOLOGIST PRN Office Visit [facility] Oncology and Hematology - [place] [address] [place] [address] Oswaldo Garland MD [address] [place] [address] Health Maintenance Due Date Last Done Comments DTAP/TDAP/TD VACCINES (1 - Tdap) 1969 PNEUMOCOCCAL VACCINE 50+ YEARS (1 of 2 - PCV) 10/04/19 [birth year] ZOSTER VACCINE (1 of 2) 1968 RSV VACCINE (60+ or ) (1 - 1-dose 75+ series) 2024 INFLUENZA VACCINE (#1) 2025 COLORECTAL SCREENING Discontinued 09/19/2016 Colorectal Cancer Screening Discontinued FIT-DNA Q 3 years Discontinued FIT/FOBT Q 1 year Discontinued Flex Sig/CT Colonography Q 5 years Discontinued Insurance [employer] PPO [facility] Care Teams Wafer Fabrication Operator Relationship Specialty Start Date End Date Luca Hanna MD PCP - General Family Practice 10/23/20
== END 2025-10-13 09:27 | disposition home or self-care (01) ==
PROVIDERS: PCP Family Medicine Adolescent Medicine; Visit Provider Internal Medicine Hematology & Oncology
DX: K44.9 Diaphragmatic hernia without obstruction or gangrene (principal); N40.0 Benign prostatic hyperplasia without lower urinary tract symptoms; M41.56 Other secondary scoliosis, lumbar region; M51.369 Other intervertebral disc degeneration, lumbar region without mention of lumbar back pain or lower extremity pain; C83.30 Diffuse large B-cell lymphoma, unspecified site
CPT/HCPCS: 74177; Q9967